=== PATIENT | female | born 1955 | race Caucasian/White ===

== ENCOUNTER 2016-11-06 14:25 | Emergency (ER) | payer OTHER ==
[2016-11-06 14:45] VITALS: BP 164/90; PULSE 81; RESP 20; TEMP 97.3; O2SAT 97
--- NOTE | 2016-11-06 16:16 | DX ---
Chest, PA and Lateral History: Cough, laryngitis Comparison: None Findings: There is four-chamber cardiomegaly. The pulmonary vascularity is equalized, consistent with chronic pulmonary venous hypertension. There are no pleural effusions or curly B lines. There is no focal infiltrate or consolidation. Median sternotomy wires are faintly seen. There is tortuosity of t he descending thoracic aorta. There is degenerative change in the mid-lower thoracic spine. Upper abd ominal bowel gas pattern is normal. Impression: 1. Cardiomegaly with compensated CHF. 2. No pneumonia.
--- NOTE | 2016-11-06 16:25 | DX ---
AP and lateral soft tissue neck History: Laryngitis, throat feels more swollen at night. Comparison: None available. Findings: Epiglottic assessment is slightly limited by positioning, with no definite epiglottic thick ening identified. The airway appears widely patent. There is no prevertebral soft tissue swelling. Tr ariana retrolisthesis of C4 on C5 is noted. There is moderate vertebral and uncovertebral spondylosis at C4-C5 and C5-C6. Partial anterior and posterior fusion of C6 and C7 is noted. Sternotomy wires are i ntact. Mild atherosclerosis is present in the left carotid bifurcation. Impression: 1. Suboptimal assessment of the epiglottis with no gross epiglottic thickening. 2. Additional findings as above.
--- NOTE | 2016-11-06 16:50 | UCPHY ---
H & P Time Seen by Provider: 11/06/16 15:08 Patient Type: Established HPI/ROS: 59-year-old female presents complaining of cough sore throat fevers chills body aches nasal congestion Review of systems As per HPI General positive fevers positive chills no weakness HEENT no eye pain no eye discharge. No eye redness, positive sore throat Respiratory positive cough, no shortness of breath Cardiac no chest pain, no peripheral edema GI no abdominal pain, no diarrhea, no constipation, no nausea, no vomiting no flank pain, no hematuria, no dysuria Musculoskeletal no myalgias, no joint pain Heme no easy bruising, no easy bleeding Endo no polyuria, no polydipsia Skin no rashes, no pruritus Neuro no syncope, no dizziness, no headaches Psych is no suicidal ideation, no homicidal ideation Past Medical/Surgical History: Noncontributory Social History: Denies alcohol or drug use Smoking Status: Never smoked Physical Exam: 61-year-old female Alert and oriented nontoxic appearance, no acute distress afebrile Atraumatic normocephalic Extraocular muscles intact, anicteric Nares mild yellowish discharge Oropharynx mild erythema no tonsillar swelling no exudate no uvular deviation, tolerating own secretions Neck supple no lymphadenopathy Lungs clear to auscultation bilaterally Heart regular rate and rhythm Abdomen normoactive bowel sounds soft nontender Extremities no cyanosis clubbing or edema Skin no rash Constitutional: Initial Vital Signs Temperature (C) 36.3 C 11/06/16 14:42 Heart Rate 81 11/06/16 14:42 Respiratory Rate 20 11/06/16 14:42 Blood Pressure 164/90 H 11/06/16 14:42 O2 Sat (%) 97 11/06/16 14:42 O2 Delivery Mode Room Air Allergies/Adverse Reactions: No Known Allergies Allergy (Unverified 12/04/15 10:39) Medical Decision Making - Diagnostics Imaging: Chest x-ray negative for infiltrate Positive cardiomegaly ED Course/Re-evaluation: Patient seen and evaluated for cough cold laryngitis fevers chills Chest x-ray negative for pneumonia Influenza negative Strep negative Exam consistent with cold, laryngitis pharyngitis bronchitis Impression Laryngitis, pharyngitis Plan Supportive care Follow-up PCP Departure - Departure Disposition: Home, Routine, Self-Care Clinical Impression: Laryngitis, Pharyngitis, Upper respiratory tract infection Condition: Good Instructions: Laryngitis (ED), Pharyngitis (ED), Upper Respiratory Infection ( ED) Referrals: IN STATE,. [Primary Care Provider] - As per Instructions - PQRS PQRS Measurement: na
== END 2016-11-06 16:52 | disposition home or self-care (01) ==
LOC: CED 14:25
DX: J04.0 Acute laryngitis (principal); J02.9 Acute pharyngitis, unspecified
CPT/HCPCS: 70360-PO; 71020-PO; 87400-PO; 87880-PO; G0463-PO

== ENCOUNTER 2016-11-29 07:34 | Day surgery (SDC) | payer OTHER ==
[2016-11-29] MEDS ORDERED: diphenhydrAMINE 25 MG CAP PO ONE ×2 (07:37→08:15)
[2016-11-29] MEDS ORDERED: NS 1,000 ML IV ONE (07:37)
[2016-11-29] MEDS ORDERED: ASPIRIN EC 325 MG TAB PO ONE ×2 (07:37→08:15)
[2016-11-29] MEDS ORDERED: FAMOTIDINE 20 MG TAB PO ONE (07:37)
[2016-11-29] MEDS ORDERED: DIAZEPAM 5 MG TAB PO ONE ×2 (07:37→16:00)
--- NOTE | 2016-11-29 08:11 | CPEKG ---
Heart Rate: 66 RR Interval: 909 P-R Interval: 228 QRSD Interval: 150 QT Interval: 464 QTC Interval: 487 P [place]: 45 QRS [place]: 1 T Wave [place]: 28 EKG Severity - ABNORMAL ECG - EKG Impression: SINUS RHYTHM EKG Impression: FIRST DEGREE AV BLOCK EKG Impression: RIGHT BUNDLE BRANCH BLOCK EKG Impression: LEFT VENTRICULAR HYPERTROPHY Electronically Signed By: Eric Murcia 29-Nov-2016 14:44:23
[2016-11-29] MEDS ORDERED: FAMOTIDINE 20 MG TAB ONE (08:15)
[2016-11-29] MEDS ORDERED: DIAZEPAM 5 MG TAB ONE ×2 (08:16→15:56)
[2016-11-29 08:36] LABS: % IMMATURE GRANULYOCYTES 0.2 % (0.0-1.1); ABSOLUTE IMMATURE GRANULOCYTES 0.01 10^3/uL (0.00-0.10); ADD DIFF? NO; ADD MORPH? NO; ADD SCAN? NO; ATYPICAL LYMPHOCYTE FLAG 10 (0-99); FRAGMENT RBC FLAG 0 (0-99); HEMOGLOBIN 14.5 g/dL (12.6-16.3); LEFT SHIFT FLG 0 (0-99); LIPEMIA HEMOLYSIS FLAG 80 (0-99); MEAN CELL HEMOGLOBIN 30.7 pg (27.9-34.1); MEAN CELL HEMOGLOBIN CONCENTR. 33.7 g/dL (32.4-36.7); MEAN CELL VOLUME 90.9 fL (81.5-99.8); MEAN PLATELET VOLUME 9.5 fL (8.7-11.7); PLATELET CLUMPS FLAG 0 (0-99); PLATELET COUNT 190 10^3/uL (150-400); RED BLOOD CELL COUNT 4.73 10^6/uL (4.18-5.33); RED CELL DISTRIBUTION WIDTH 12.6 % (11.5-15.2)
[2016-11-29] MEDS ORDERED: PROPOFOL 200 MG/20 ML VIAL ONE ×2 (08:40→09:44)
[2016-11-29] MEDS ORDERED: MIDAZOLAM 2 MG/2 ML VIAL ONE ×2 (08:41→09:29)
[2016-11-29 08:44] LABS: INR 1.11 (0.83-1.16); PROTIME(PATIENT) 14.2 SEC (12.0-15.0)
[2016-11-29] MEDS ORDERED: ATROPINE SULFATE 1 MG/10 ML SYR ONE (08:51)
[2016-11-29 09:06] LABS: ANION GAP 11 mEq/L (8-16); CALCIUM 9.4 mg/dL (8.5-10.4); CARBON DIOXIDE 25 mEq/l (22-31); CHLORIDE 103 mEq/L (97-110); CHOLESTEROL 186 mg/dL (140-220); CHOLESTEROL/HDL RATIO 5.17 RATIO (1.00-4.44); CREATININE 0.7 mg/dL (0.6-1.0); GLOMERULAR FILTRATION RATE > 60; GLUCOSE 97 mg/dL (70-100); HIGH DENSITY LIPOPROTEIN 36 mg/dL (40-85); LDL/HDL RATIO 3.69 RATIO (1.00-3.22); LOW DENSITY LIPOPROTEIN 133 mg/dL (80-100); MAGNESIUM 2.1 mg/dL (1.6-2.3); NON-HIGH DENSITY LIPOPROTEIN 150 mg/dL (90-129); POTASSIUM 3.9 mEq/L (3.5-5.2); SODIUM 139 mEq/L (134-144); TRIGLYCERIDE 85 mg/dL (35-135); VERY LOW DENSITY LIPOPROTEINS 17 mg/dL (8-25)
[2016-11-29] MEDS ORDERED: LIDOCAINE 1% 30 ML SDV ONE (09:28)
[2016-11-29] MEDS ORDERED: IOPAMIDOL (ISOVUE-370) 150 ML BTL IV ONE ×2 (09:29→11:21)
[2016-11-29] MEDS ORDERED: fentaNYL 100 MCG/2 ML INJ ONE (09:29)
[2016-11-29] MEDS ORDERED: SUCCINYLCHOLINE CHLORIDE*ANESTHESIA ONLY*200 MG/10 ML SYR IVP ONE (10:03)
[2016-11-29] MEDS ORDERED: EPINEPHrine RACEMIC INH 0.5 ML DEYVIAL IH ONE (10:09)
[2016-11-29] MEDS ORDERED: ALBUTEROL 3 ML DEYVIAL ONE (10:10)
[2016-11-29] MEDS ORDERED: PROPOFOL/EMULSION 500 MG/50 ML BOTTLE IV ONE (10:27)
--- NOTE | 2016-11-29 13:09 | CPEKG ---
Heart Rate: 75 RR Interval: 800 P-R Interval: 224 QRSD Interval: 142 QT Interval: 412 QTC Interval: 461 P [place]: 46 QRS [place]: 6 T Wave [place]: 7 EKG Severity - ABNORMAL ECG - EKG Impression: SINUS RHYTHM EKG Impression: FIRST DEGREE AV BLOCK EKG Impression: RIGHT BUNDLE BRANCH BLOCK EKG Impression: PROBABLE LVH WITH SECONDARY REPOL ABNRM Electronically Signed By: Eric Murcia 29-Nov-2016 14:44:03
--- NOTE | 2016-11-29 13:48 | CPIP ---
DATE OF PROCEDURE: 11/29/2016 PROCEDURES: 1. Left heart catheterization. 2. Right heart catheterization. 3. Left ventriculography. 4. Coronary angiography. INDICATIONS: 1. Rzgesrnv-jr-uyvqdm mitral regurgitation. 2. History of congenital heart disease. 3. Possible pre cardiac surgery planning. 4. Pulmonary hypertension. COMPLICATIONS: None. DESCRIPTION OF PROCEDURE: Informed consent was obtained, and timeout performed. The patient was br ought to the cardiac catheterization lab and prepped and draped in a sterile fashion. Adequate cons cious sedation was achieved by Dr. Guadarrama of the anesthesia service. 1% lidocaine was used for loca l anesthesia to the right groin. Using modified Seldinger technique, a 6-Turkish introducer sheath w as placed in the right common femoral artery, and a 7-Turkish introducer sheath in the right common f emoral vein. Florence-Enedelia catheter was used for right heart catheterization. JL4, 3.5 catheter was us ed for left coronary angiography. An AL1 catheter was used for right coronary angiography. Pigtail catheter was used for left ventriculography. FINDINGS: 1. The left main bifurcates into the LAD and left circumflex systems. There is 40% ostial left rachelle n disease as well as a lesser degree of disease throughout the left main. The LAD reaches the apex. 2. The LAD reached the apex. There are 2 principal diagonals. There was a 70% proximal LAD lesion . There is diffuse 40% disease throughout the remainder of the LAD. 3. The circumflex has 3 fairly large obtuse marginals. There is 50% ostial stenosis of the 1st obt use marginal, otherwise no significant disease in the left circumflex. 4. The right coronary artery was not perfectly visualized due to difficulty with catheter engagemen t (tried JR4, Jose Right, AL1 and AL2). There does appear to be at least 50% ostial RCA disease , and then 50% mid RCA stenosis. Anatomy is right dominant. LEFT VENTRICULOGRAPHY: Left ventricular ejection fraction is 55%. There is at least moderate jon l regurgitation. HEMODYNAMICS: Right heart catheterization RA pressure is 7, RV pressure 44/5, PA pressure 44/16 wit h a mean of 28, pulmonary capillary wedge pressure mean of 11 with significant V-wave to 16. LV pressure 105/8, aortic pressure 108/57. There is no aortic stenosis. LV end-diastolic pressure is 17. We did a full shunt run. Calculated Bradley cardiac output on room air is 7.2 L/minutes. Index is 3.8 5 L/minute. SVC saturation is 77%. RA saturation 80%. RV saturation 79%. PA saturation 80% and I VC saturation 82%, FA saturation 96.5%. There does not appear to be any significant intracardiac sh unting. CONCLUSIONS: 1. 40% left main disease as well as significant LAD and RCA disease. 2. Low normal ejection fraction. 3. Pbocmpqf-hx-dvyvtf mitral regurgitation. 4. Mild pulmonary hypertension. 5. History of congenital heart disease, possibly ASD repair. No other congenital heart disease was identified based on her SHENG or heart catheterization. 6. Patient will have a manual sheath pull as she has some peripheral vascular disease. 7. Add statin and aspirin. 8. Patient currently in stable condition, discharged home once groin protocol is complete. Follow up with Dr. Rizo and Dr. Moss for consideration of surgical intervention. /[id number]/MODL
--- NOTE | 2016-11-29 16:40 | ECHO ---
[id number] + + [address] : : [facility] [address] : : [phone] + + Transesophageal Echocardiographic Report + -------+ :Name: RYANNE HICKS CStudy Date: 11/29/2016 10:30 AM : : Hospital Admission Number: [id number] Locati on: CVC: :: 1955 Gender: Female : :Age: 61 yrs Race: WH : :Reason For Study: Eval LV Fx : :History: MR, Pre Cath : + -------+ Left Ventricle The left ventricular ejection fraction is normal. Right Ventricle The right ventricular systolic function is severely reduced. Atria The interatrial septum is intact with no evidence for an atrial septal defect. Injection of contrast documented no interatrial shunt. No left atrial mass or thrombus visualized. No thrombus is detected in the left atrial appendage. The left atrium is severely dilated. The right atrium is moderately dilated. Mitral Valve Severe prolapse of the posterior leaflet of the mitral valve. There is no mitral valve stenosis. There is severe mitral regurgitation. The mitral regurgitant jet is anteriorly directed, which is consistent with posterior leaflet pathology. Tricuspid Valve There is moderate tricuspid regurgitation. Aortic Valve The aortic valve is trileaflet. There is no aortic stenosis. There is no aortic insufficiency. Pulmonic Valve The pulmonic valve is normal in structure and function. There is no pulmonic valvular regurgitation. Vessels The aortic root is normal size. Pericardium There is no pericardial effusion. Conclusion The left ventricular ejection fraction is normal. The interatrial septum is intact with no evidence for an atrial septal defect. Injection of contrast documented no interatrial shunt. No left atrial mass or thrombus visualized. No thrombus is detected in the left atrial appendage. The left atrium is severely dilated. Severe prolapse of the posterior leaflet of the mitral valve There is severe mitral regurgitation. The mitral regurgitant jet is anteriorly directed, which is consistent with posterior leaflet pathology. The right ventricular systolic function is severely reduced. There is moderate tricuspid regurgitation. The aortic valve is trileaflet. There is no pericardial effusion. Final Reading Physician: Dr Ignacia Medina electronically signed on 11/29/2016 04:38 PM Ordering Physician: Ignacia Medina Performed By: Dr Ignacia Medina
== END 2016-11-29 18:44 | disposition home or self-care (01) ==
LOC: FCATH 07:34
PROVIDERS: ATTEND Internal Medicine Cardiovascular Disease
PROC: B2111ZZ Fluoroscopy of Multiple Coronary Arteries using Low Osmolar Contrast (ICD-10-PCS; principal; 2016-11-29)
PROC: B2151ZZ Fluoroscopy of Left Heart using Low Osmolar Contrast (ICD-10-PCS; principal; 2016-11-29)
PROC: 4A023N8 Measurement of Cardiac Sampling and Pressure, Bilateral, Percutaneous Approach (ICD-10-PCS; principal; 2016-11-29)
DX: I34.0 Nonrheumatic mitral (valve) insufficiency (principal); I25.10 Atherosclerotic heart disease of native coronary artery without angina pectoris; I27.2 Other secondary pulmonary hypertension; Z96.641 Presence of right artificial hip joint
CPT/HCPCS: J0330; J0461; J1644; J2250; J2704; J3010; Q9967

== ENCOUNTER → 2016-12-04 | Outpatient (CLI) | payer OTHER | LOC: FIMAGING 15:47 | PROVIDERS: ATTEND Internal Medicine Cardiovascular Disease | DX: R09.89 Other specified symptoms and signs involving the circulatory and respiratory systems (principal) ==

== ENCOUNTER → 2016-12-11 | Outpatient (CLI) | payer OTHER ==
[~2016-12-11] MED LIST: IOPAMIDOL (ISOVUE 370) 100 ML BTL IV ONE; METOPROLOL TARTRATE 5 MG/5 ML INJ ONE
== END ==
LOC: FIMAGING 10:47
PROVIDERS: ATTEND Internal Medicine Cardiovascular Disease
DX: I25.10 Atherosclerotic heart disease of native coronary artery without angina pectoris (principal); I27.2 Other secondary pulmonary hypertension; I51.7 Cardiomegaly
CPT/HCPCS: Q9967

== ENCOUNTER 2017-01-01 05:53 | Inpatient (IN) | payer OTHER ==
[2017-01-01] MEDS ORDERED: VERAPAMIL 5 MG, NITROGLYCERIN 2.5 MG, HEPARIN 500 UNIT, SODIUM BICARBONATE 0.2 MEQ in L... MISC ONE (06:00)
[2017-01-01] MEDS ORDERED: MUPIROCIN 2% 22 GM OINT NS ONE (06:00)
[2017-01-01] MEDS ORDERED: NOREPINEPHRINE BITARTRATE 16 MG in NS 250 ML IV ONE (06:00)
[2017-01-01] MEDS ORDERED: PHENYLEPHRINE HCL 50 MG in NS 250 ML IV ONE (06:00)
[2017-01-01] MEDS ORDERED: LIDOCAINE 1% 5 ML SDV ID PRN ×2 (06:00→06:55)
[2017-01-01] MEDS ORDERED: AMINOCAPROIC ACID 5 GM/20 ML VIAL IV ONE (06:00)
[2017-01-01] MEDS ORDERED: ceFAZolin 2 GM/DEXTROSE 100 ML IV ONE (06:00)
[2017-01-01] MEDS ORDERED: CHLORHEXIDINE GLUC HIBICLENS 118 ML BTL TP ONE (06:00)
[2017-01-01] MEDS ORDERED: MANNITOL 25% 12.5 GM/50 ML VIAL IV ONE (06:00)
[2017-01-01] MEDS ORDERED: SODIUM BICARBONATE 20 MEQ, LIDOCAINE 1% 10 ML in NORMOSOL-R 1,000 ML MISC ONE (06:00)
[2017-01-01] MEDS ORDERED: NS 1,000 ML IV ONE (06:00)
[2017-01-01] MEDS ORDERED: INSULIN REGULAR HUMAN 100 UNIT in NS 100 ML IV ONE (06:00)
[2017-01-01] MEDS ORDERED: niCARdipine/NACL 200 ML IV SCH (06:00)
[2017-01-01] MEDS ORDERED: CITRATE DEXTROSE SOLN 500 ML BAG MISC ONE (06:00)
[2017-01-01] MEDS ORDERED: LIDOCAINE 1% 2 ML INJ ONE (06:38)
[2017-01-01] MEDS ORDERED: PROTAMINE SULFATE 50 MG/5 ML VIAL IVP ONE (06:55)
[2017-01-01] MEDS ORDERED: LR 1,000 ML IV ONE (06:55)
[2017-01-01] MEDS ORDERED: CALCIUM CHLORIDE 1 GM/10 ML INJ ONE ×2 (06:55→07:00)
[2017-01-01] MEDS ORDERED: AMINOCAPROIC ACID 5 GM/20 ML VIAL ONE ×2 (06:56→07:00)
[2017-01-01] MEDS ORDERED: NA BICARBONATE 50 MEQ/50 ML VIAL ONE (06:56)
[2017-01-01] MEDS ORDERED: MILRINONE/DEXTROSE/100 ML BAG IV ONE (06:56)
[2017-01-01] MEDS ORDERED: POTASSIUM Cl (KCl) 20 MEQ/50 ML BAG IV ONE (06:56)
[2017-01-01] MEDS ORDERED: niCARdipine/NACL/200 ML BAG IV ONE (06:57)
[2017-01-01] MEDS ORDERED: AMIODARONE HCL 150 MG/3 ML VIAL ONE ×2 (06:57→07:01)
[2017-01-01] MEDS ORDERED: DOPamine/DEXTROSE/250 ML BAG IV ONE (06:57)
[2017-01-01] MEDS ORDERED: ADENOSINE 6 MG/2 ML VIAL ONE (06:57)
[2017-01-01] MEDS ORDERED: ceFAZolin 1 GM VIAL ONE (06:58)
[2017-01-01] MEDS ORDERED: HEPARIN 10,000 UNIT/10 ML MDV ONE ×2 (06:58→07:02)
[2017-01-01] MEDS ORDERED: VERAPAMIL 5 MG/2 ML VIAL ONE (06:59)
[2017-01-01] MEDS ORDERED: SKIN ADHESIVE (DERMABOND) 1 EACH TP ONE ×2 (06:59→13:55)
[2017-01-01] MEDS ORDERED: PAPAVERINE HCL 60 MG/2 ML SDV ONE (06:59)
[2017-01-01] MEDS ORDERED: ALBUMIN 5% 250 ML BOTTLE IV ONE (07:00)
[2017-01-01] MEDS ORDERED: LIDOCAINE 2% 100 MG/5 ML SYR ONE (07:01)
[2017-01-01] MEDS ORDERED: MAGNESIUM SULFATE 1 GM/2 ML VIAL ONE (07:01)
[2017-01-01] MEDS ORDERED: methylPREDNISolone SOD SUCC 1 GM/8 ML VIAL ONE (07:01)
[2017-01-01] MEDS ORDERED: CITRATE DEXTROSE SOLN 500 ML BAG ONE (07:01)
[2017-01-01] MEDS ORDERED: fentaNYL 250 MCG/5 ML INJ ONE ×2 (07:07)
[2017-01-01] MEDS ORDERED: MIDAZOLAM 2 MG/2 ML VIAL ONE ×2 (07:07→07:13)
[2017-01-01] MEDS ORDERED: PROPOFOL/EMULSION 500 MG/50 ML BOTTLE IV ONE (07:08)
[2017-01-01] MEDS ORDERED: MINERAL OIL 10 ML VIAL TP ONE (09:12)
[2017-01-01] MEDS ORDERED: DOBUTamine/DEXTROSE 250 ML IV SCH (11:00)
[2017-01-01] MEDS ORDERED: DEXMEDETOMIDINE HCL 400 MCG in NS 100 ML IV SCH (11:00)
[2017-01-01] MEDS ORDERED: PROPOFOL 200 MG/20 ML VIAL ONE (11:06)
[2017-01-01] MEDS ORDERED: THROMBIN(HUM PLAS)/FIBRINOG/CA 5 ML VIAL TP ONE (13:55)
[2017-01-01] MEDS ORDERED: CEPACOL LOZENGE PO PRN (14:07)
[2017-01-01] MEDS ORDERED: MAGNESIUM HYDROXIDE 30 ML UDCUP PO PRN (14:07)
[2017-01-01] MEDS ORDERED: MEPERIDINE 25 MG/ML SYR IVP PRN (14:07)
[2017-01-01] MEDS ORDERED: LACTULOSE 20 GM/30 ML UDCUP PO PRN (14:07)
[2017-01-01] MEDS ORDERED: fentaNYL 100 MCG/2 ML INJ IVP PRN (14:07)
[2017-01-01] MEDS ORDERED: ACETAMINOPHEN 650 MG SUPP PR PRN (14:07)
[2017-01-01] MEDS ORDERED: MAGNESIUM SULF 2 GM/WATER 50 ML IV ONE (14:07)
[2017-01-01] MEDS ORDERED: BISACODYL 10 MG SUPP PR PRN (14:07)
[2017-01-01] MEDS ORDERED: SODIUM CL NASAL 45 ML BTL EACHNARE PRN (14:07)
[2017-01-01] MEDS ORDERED: PANTOPRAZOLE SODIUM 40 MG in NS 100 ML IV ONE (14:07)
[2017-01-01] MEDS ORDERED: POTASSIUM Cl (KCl) 50 ML IV PRN (14:07)
[2017-01-01] MEDS ORDERED: ONDANSETRON DISINTEGRATING 4 MG TAB PO PRN (14:07)
[2017-01-01] MEDS ORDERED: D50W 25 GM/50 ML SYR IVP PRN (14:07)
[2017-01-01] MEDS ORDERED: NS 1,000 ML IV SCH (14:15)
[2017-01-01] MEDS ORDERED: INSULIN REGULAR HUMAN 100 UNIT in NS 100 ML IV SCH (14:30)
[2017-01-01] MEDS ORDERED: HYDROmorphONE/DILAUDID 2 MG/ML INJ ONE (14:44)
[2017-01-01] MEDS ORDERED: SUGAMMADEX SODIUM 200 MG/2 ML VIAL IVP ONE (15:00)
--- NOTE | 2017-01-01 15:02 | POSTOPPROG ---
Post Op Note Date of Operation: 01/01/17 Surgeon: Silvino Moss Deputy Juvenile Officer: Basilio Anesthesiologist: Jaime Anesthesia: GET(General Endotracheal) Pre-op Diagnosis: CHF class3, MR,TR, ASHD, dilated CM Procedure: MVA #34 ring, P2 resection, TVA # 36, Argueta-Lad, SVG-OM1,RCA, lig JOSE Inf/Abcess present in the surg proc area at time of surgery?: No EBL: 100-500 Drains: Other (3 blakes)
[2017-01-01] MEDS ORDERED: IPRATROPIUM/ALBUTEROL 3 ML DEYVIAL IH PRN (15:12)
[2017-01-01] MEDS ORDERED: SODIUM BICARBONATE 50 MEQ/50 ML SYR ONE (15:58)
--- NOTE | 2017-01-01 16:08 | GOP ---
[f rep st] OPERATIVE REPORT DATE OF OPERATION: 01/01/2017 SURGEON: Silvino Moss DO LUMP ROOM SUPERVISOR: Steff Richmond, PAC. ANESTHESIOLOGIST: Nicolas Sandoval MD. PREOPERATIVE DIAGNOSIS: 1. Class III congestive heart failure with dilated cardiomyopathy with severe mitral insufficiency and moderate tricuspid insufficiency with marked tricuspid anulus dilatation. 2. Arteriosclerotic heart disease. POSTOPERATIVE DIAGNOSIS: PROCEDURE PERFORMED: 1. Reoperation, complex mitral valve repair with P2 triangular resection with closure of cleft and #34 annuloplasty ring. 2. Tricuspid valve annuloplasty with a #36 annuloplasty ring. 3. Coronary artery bypass grafting x3 with left internal mammary artery to the LAD, saphenous vein graft to the first OM, saphenous vein graft to the RCA. 4. AtriClip ligation of left atrial appendage. 5. Aortoplasty with reduction of lumen size. FINDINGS: Patient presented with congestive heart failure. She was noted to have severe mitral ins ufficiency with marked left atrial and left ventricular enlargement as well as right ventricular and right atrial enlargement with moderate pulmonary hypertension and moderate tricuspid insufficiency. At catheterization, she was found to have 3-vessel disease. Holter monitor revealed no atrial fib rillation with just short episodes of ventricular ectopy. Historically, the patient has undergone h eart surgery at age 3 in 1958 on the [facility]; however, the procedure performed was unknown to her or her family, and those records are not obtainable. Cardiac CTA failed to elucidate any other fin dings that would suggest previous surgery; however, she did have a sternotomy with wires. DESCRIPTION OF PROCEDURE: She was consented for surgery, brought to the operating room, intubated, and monitoring lines were placed. She was prepped and draped in sterile classical manner. Repeat s ternotomy was performed. It should be noted we also exposed the right common femoral artery because the heart appeared to be densely adherent to the back of the sternum. In fact, we were able to saf alex marsupialize the heart away from the anterior surface of the heart and did not use the right com mon femoral artery. We then spent a great deal of time marsupializing a very large heart with all 4 chamber enlargement. The heart was least twice normal size. The aorta measured 4.3 cm in the wide st segment, up to 4.5 at the sinotubular junction. Because of her younger age, it was scheduled to be resected. We cannulated the transverse arch where the aorta was soft as well as bicaval cannulas . We also placed antegrade and retrograde cardioplegic catheters. Cardiopulmonary bypass was begun . Cardioplegic arrest was obtained with intermittent antegrade cardioplegia, retrograde cardioplegi a, topical hypothermia and systemic cooling throughout the procedure. We then dissected out the lef t side of the heart. We identified the left atrial appendage, which was mobilized and an AtriClip w as placed across the base of it. Then spent a great deal of time identifying the 1st OM, which was difficult to identify but was a 1.6-1.7 mm vessel which was grafted from the vein harvested endoscop ically from the left thigh by ANDREA Nielson. We then completed that anastomosis and then performed t he mammary to the mid LAD, which was a 2 mm vessel. The mammary was smaller but had brisk flow. We then completed vein grafting to the RCA prior to the bifurcation of the PDA where the vessel was so ft but did have some plaque proximally. We then proceeded with exposing the right atrial tricuspid valve through a right atriotomy. We secured cable tapes and opened down through the inner atrial se ptum down onto the dome of the left atrium to expose the mitral valve because of the very deep posit ion of her pulmonary veins and the reoperative nature. Excellent exposure of the valve was obtained . The patient had a thickened myxomatous valve with obvious P2 prolapse. Circumferential annulopla sty suture rings were placed for better exposure. We then did a triangular resection of P2 with clif damari repair utilizing [place]-Jeremi suture. We then placed a 34 annuloplasty ring after sizing it to the anterior leaflet. of the ventricle revealed trace central regurgitation at the juncture of P2 and P3 at a cleft there, which was closed with two 5-0 [place]-Jeremi interrupted sutures. No regu rgitation was then identified. The interatrial septum was closed as was the dome of the left atrium . We then identified the tricuspid valve which was markedly dilated, at least 50-60 mm. Leaflets w ere thickened but appeared to coapt except for annular dilatation. Placed circumferential suture ri ngs and sized the patient for the largest annuloplasty ring we have, which was a 36, with good coapt ation of the leaflets. That suture was then closed. We then performed an aortoplasty, initially wi th plans to resect the aorta. Because of the prolonged nature of the surgery because of dense adhes ions and complexity of getting into the chest safely as well as identifying vessels and the duration of cross-clamp time, I elected to do an aortoplasty as the wall was thick. I did a longitudinal ao rtotomy along the lateral wall on the right at the greater curvature of the vessel. The aorta was a ctually a good quality vessel which was quite thick. I then used felt reinforced horizontal mattres s followed by continuous [id number] sutures reducing the size of the lumen approximately 1.8 to 2 cm. I then performed the proximal anastomosis to the ascending aorta. I removed the cross-clamp w ith suction on the ascending aortic vent. Spontaneous cardiac activity was noted to resume. The pa tient was then easily weaned from bypass with low-dose dobutamine in Trendelenburg with intermittent aspiration of the LV apex. Evaluation of the mitral valve revealed excellent coaptation with absol utely no regurgitation and no TRA despite increasing dobutamine dose to elicit it. Ventricular func tion appeared to be about 40% to 45%. RV function pre and post pump appeared to be somewhat diminis hed with at least moderate to moderate severe dysfunction. The patient remained stable while protam ine was administered. We spent a great deal of time to make sure that no surgical bleeding was iden tified. Two mediastinal and 1 left pleural drain were placed. The thymic fat and pericardium were closed over the heart. The chest was closed in a standard fashion. The patient was returned to the ICU in stable condition. /[id number]/MODL
[2017-01-01] MEDS: ceFAZolin 2 GM/DEXTROSE 100 ML IV SCH ×2 (17:29→23:50)
[2017-01-01] MEDS ORDERED: NA BICARBONATE 50 MEQ/50 ML VIAL IV ONE (17:30)
[2017-01-01] MEDS ORDERED: KETOROLAC 15 MG/1 ML SDV IVP SCH (18:00)
[2017-01-01] MEDS ORDERED: SODIUM BICARBONATE 50 MEQ/50 ML SYR IV ONE (19:00)
[2017-01-01 19:47] LABS: CALCULATED OXYGEN SATURATION 99 % (92-95)
[2017-01-01 19:47] LABS: CALCULATED OXYGEN SATURATION 96 % (92-95)
[2017-01-01 20:23] LABS: BASE EXCESS -4.1 mEq/L (-2.5-2.5); BICARBONATE 20 mEq/L (22-26); MEASURED OXYGEN SATURATION 98 % (92-95); TCO2 21 mEq/L (23-27)
[2017-01-01 20:24] LABS: PCO2 36 mmHg (34-38); PO2 130 mmHg (65-75)
[2017-01-01] MEDS: ALBUMIN 5% 250 ML IV PRN ×2 (20:33→20:52)
[2017-01-01] MEDS: ONDANSETRON 4 MG/2 ML VIAL IVP PRN (20:50)
[2017-01-01] MEDS: SENNOSIDES/DOCUSATE SODIUM TAB PO SCH (21:36)
[2017-01-01] MEDS: MUPIROCIN 2% 22 GM OINT NS SCH (21:59)
[2017-01-01] MEDS: METOCLOPRAMIDE 10 MG/2 ML VIAL IVP PRN (23:58)
[2017-01-02] MEDS: MUPIROCIN 2% 22 GM OINT NS SCH ×3 (01:42→20:32)
[2017-01-02 04:32] LABS: HEMATOCRIT 34.3 % (38.0-47.0); HEMOGLOBIN 11.4 g/dL (12.6-16.3); MEAN CELL HEMOGLOBIN 30.8 pg (27.9-34.1); MEAN CELL HEMOGLOBIN CONCENTR. 33.2 g/dL (32.4-36.7); MEAN CELL VOLUME 92.7 fL (81.5-99.8); RED BLOOD CELL COUNT 3.7 10^6/uL (4.18-5.33); RED CELL DISTRIBUTION WIDTH 13.3 % (11.5-15.2)
[2017-01-02 04:45] LABS: INR 1.39 (0.83-1.16)
[2017-01-02 04:51] LABS: ANION GAP 6 mEq/L (8-16); CALCIUM 8.3 mg/dL (8.5-10.4); CARBON DIOXIDE 24 mEq/l (22-31); CHLORIDE 115 mEq/L (97-110); CREATININE 0.6 mg/dL (0.6-1.0); GLOMERULAR FILTRATION RATE > 60; GLUCOSE 120 mg/dL (70-100); POTASSIUM 4.9 mEq/L (3.5-5.2); SODIUM 145 mEq/L (134-144)
[2017-01-02] MEDS ORDERED: HEPARIN 5,000 UNIT/0.5 ML SYR SC SCH (06:00)
[2017-01-02] MEDS ORDERED: FUROSEMIDE 20 MG/2 ML VIAL IVP ONE (07:24)
--- NOTE | 2017-01-02 07:30 | SOAPPROG ---
SOAP Progress Note Assessment/Plan: Assessment: POD#1 Redo median sternotomy, aortoplasty, complex MV rpr w #34 Physio annuloplasty ring, TVA #36 MC3 ring, CABG x 3 (PORFIRIO-LAD, SV-OM1, SV-RCA) , EVH left thigh, prophylactic AtriClip LLAA. Sx severe MR - Myxomatous valve amenable to complex repair. Antithrombotic prophylaxis with Coumadin, target INR 2-3, duration 3 mo. Secondary TR - Annular dilatation amenable to ring annuloplasty. Antithrombotic prophylaxis as per MV. CAD - Full revascularization with CABG3. Secondary prevention with baby ASA, BB as allowed by rhythm, and statin when eating well. Dilated ascending aorta - With preserved tissue integrity. Resection deferred and diameter reduced by aortoplasty. Prison BP control preferentially w BB. Dilated cardiomyopathy with chronic combined CHF - RVSD and LVDD. Empirically from CPB on dobutamine gtt, AV paced. Extubated in the OR. Stable hemodynamics overnoc. No sig volume overload. No dysrhythmia. Dobutamine wean in progress. Acute expected blood loss anemia w thrombocytopenia - Stable. No transfusions required. No evidence active coagulopathy. VTE prophylaxis with Coumadin. Plan: Switch to AAI pacing, rate 80 Lasix 20 mg IV x 1 Slow dobutamine wean. Target CVP 10-12, MAP > 70. Keep estela until off dobutamine. Keep guerra for accurate I/Os. Convert blakes to bulb suction. Mobility as tolerated. Start coumadin today. 2.5 mg. 01/02/17 07:26 Subjective: Feels a little groggy but better than expected. Thirsty. Satisfactory analgesia. Objective: Vital Signs Temp Pulse Resp BP Pulse Ox 38 C 80 18 112/49 L 96 01/02/17 06:00 01/02/17 06:00 01/02/17 06:00 01/02/17 06:00 01/02/17 06:00 Laboratory Results 01/02/17 04:10 01/02/17 04:10 01/01/17 01/02/17 01/03/17 05:59 05:59 05:59 Intake Total 1252 Output Total 2450 Balance -1198 PT 17.0 SEC (12.0-15.0) H 01/02/17 04:10 INR 1.39 (0.83-1.16) H 01/02/17 04:10 Dobutamine weaned from 10mcg to 6 mcg. MAPs maintained > 70. DDD paced at 80 for optimized hemodynamics. Underlying rhythm junctional 50s. Converted to AAI pacing without incident. Modest suppl O2 req. CXR-> bibasilar atelectasis with mild pulm vasc congestion. No PTX. No sig CTOP. No air leak. Adequate fluid balance. Labs ok. Physical Exam - Physical Exam General Appearance: alert, no apparent distress Respiratory: crackles (bases), other (Blakes x 3 y-d to pleurovac, serosang drainage, + tidal, no air leak) Cardiac/Chest: regular rate, rhythm (paced) Abdomen: non-tender, soft, other (hypoactive BS) Skin: warm/dry Extremities: swelling (1+ gen), other (LLE wrap intact) ICD10 Worksheet Patient Problems: Problems Problem Status Onset Acute blood loss anemia Acute S/P coronary artery bypass graft x 3 Acute ~01/01/17 S/P mitral valve repair Acute ~01/01/17 S/P tricuspid valve repair Acute ~01/01/17 s/p aortoplasty Acute ~01/01/17 Ascending aorta dilatation Chronic CAD in [place] artery Chronic Chronic combined systolic and diastolic CHF, NYHA class 2 Chronic Secondary pulmonary hypertension Chronic Secondary tricuspid valve regurgitation Chronic Severe mitral regurgitation Chronic Hip arthritis Chronic
[2017-01-02] MEDS: ceFAZolin 2 GM/DEXTROSE 100 ML IV SCH ×3 (07:42→23:39)
[2017-01-02] MEDS ORDERED: ASPIRIN 81 MG CHEWABLE TAB PO SCH (09:00)
[2017-01-02] MEDS ORDERED: ASPIRIN 81 MG CHEWABLE TAB TUBE PRN (09:00)
[2017-01-02] MEDS: ASPIRIN EC 81 MG TAB PO SCH (09:08)
[2017-01-02] MEDS: SENNOSIDES/DOCUSATE SODIUM TAB PO SCH ×2 (09:08→20:32)
[2017-01-02] MEDS: PANTOPRAZOLE SODIUM 40 MG TAB PO SCH (09:08)
[2017-01-02] MEDS: KETOROLAC 15 MG/1 ML SDV IVP PRN ×3 (10:10→23:39)
[2017-01-02] MEDS: HYDROCODONE/APAP 5/325 TAB PO PRN ×5 (10:11→23:49)
[2017-01-02 10:37] LABS: POTASSIUM 4.5 mEq/L (3.5-5.2)
--- NOTE | 2017-01-02 13:04 | SOAPPROG ---
SOAP Progress Note Assessment/Plan: Assessment: 61 y/o woman s/p redo sternotomy with MV and TV annuloplasties, CABG and JOSE ligation with preop LVEF 40%. POD #1 doing okay extubated. Still on moderate DBT dose gtt. CVP 13mmHg. REC: 1)would give another IV lasix 40mg later this afternoon if SBP > 95 2)rest of meds without changes. 3)will follow with you closely. 01/02/17 13:01 Subjective: tired. Some incisional pain. No rest dyspnea. No chest pressure or BEAULIEU. A little confused as waking up. Objective: Vital Signs Temp Pulse Resp BP Pulse Ox 37.8 C 80 20 132/67 H 96 01/02/17 12:00 01/02/17 12:00 01/02/17 12:00 01/02/17 12:00 01/02/17 12:00 Laboratory Results 01/02/17 04:10 01/02/17 10:15 01/01/17 01/02/17 01/03/17 05:59 05:59 05:59 Intake Total 1252 Output Total 2450 1035 Balance -1198 -1035 PT 17.0 SEC (12.0-15.0) H 01/02/17 04:10 INR 1.39 (0.83-1.16) H 01/02/17 04:10 Physical Exam - Physical Exam General Appearance: alert EENT: PERRL/EOMI Neck: non-tender Respiratory: decreased breath sounds (rare crackles at base. Not big breaths yet.) Cardiac/Chest: regular rate, rhythm, JVD, No gallop, No friction rub Peripheral Pulses: 2+: carotid (R), carotid (L), femoral (R), femoral (L), dorsalis-pedis (R), dorsalis-pedis (L) Abdomen: non-tender, No guarding Skin: warm/dry Extremities: pedal edema Neuro/Psych: alert ICD10 Worksheet Patient Problems: Problems Problem Status Onset Acute blood loss anemia Acute S/P coronary artery bypass graft x 3 Acute ~01/01/17 S/P mitral valve repair Acute ~01/01/17 S/P tricuspid valve repair Acute ~01/01/17 s/p aortoplasty Acute ~04/05/17 Ascending aorta dilatation Chronic CAD in [place] artery Chronic Chronic combined systolic and diastolic CHF, NYHA class 2 Chronic Secondary pulmonary hypertension Chronic Secondary tricuspid valve regurgitation Chronic Severe mitral regurgitation Chronic Hip arthritis Chronic
[2017-01-02] MEDS ORDERED: FUROSEMIDE 40 MG/4 ML VIAL IVP ONE ×2 (14:30→20:00)
[2017-01-02 15:35] LABS: POTASSIUM 4.8 mEq/L (3.5-5.2)
[2017-01-02] MEDS ORDERED: WARFARIN SODIUM 2.5 MG TAB PO ONE (16:00)
--- NOTE | 2017-01-02 18:54 | PDINTPN ---
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 Status post major open heart surgery, doing extremely well. On 0.5 L of oxygen, mobilizing, no significant problems or issues at this time. Pain under adequate control. Nothing to add. Will follow as needed. Objective: Vital Signs Temp Pulse Resp BP Pulse Ox 37.8 C 75 25 H 105/53 L 97 01/02/17 17:00 01/02/17 17:00 01/02/17 17:00 01/02/17 17:00 01/02/17 17:00 Laboratory Results 01/02/17 04:10 01/01/17 01/02/17 01/03/17 05:59 05:59 05:59 Intake Total 1252 298.5 Output Total 2450 1510 Balance -1198 -1211.5 PT 17.0 SEC (12.0-15.0) H 01/02/17 04:10 INR 1.39 (0.83-1.16) H 01/02/17 04:10 ICD10 Worksheet Patient Problems: Problems Problem Status Onset Secondary pulmonary hypertension Chronic Acute blood loss anemia Acute S/P tricuspid valve repair Acute ~01/01/17 S/P mitral valve repair Acute ~01/01/17 s/p aortoplasty Acute ~01/01/17 S/P coronary artery bypass graft x 3 Acute ~01/01/17 Ascending aorta dilatation Chronic Chronic combined systolic and diastolic CHF, NYHA class 2 Chronic CAD in [place] artery Chronic Secondary tricuspid valve regurgitation Chronic Severe mitral regurgitation Chronic Hip arthritis Chronic
[2017-01-02 18:56] LABS: POTASSIUM 5.4 mEq/L (3.5-5.2)
[2017-01-02] MEDS: ONDANSETRON 4 MG/2 ML VIAL IVP PRN (23:55)
[2017-01-03 00:42] LABS: POTASSIUM 5.3 mEq/L (3.5-5.2)
[2017-01-03] MEDS ORDERED: ALBUMIN 5% 250 ML BOTTLE IV ONE (01:59)
[2017-01-03] MEDS ORDERED: DOPamine/DEXTROSE/250 ML BAG IV ONE (01:59)
[2017-01-03] MEDS ORDERED: FUROSEMIDE 40 MG/4 ML VIAL IVP ONE ×2 (02:00→23:46)
[2017-01-03] MEDS ORDERED: ALBUMIN 5% 250 ML IV ONE ×2 (02:00→09:30)
[2017-01-03] MEDS: METOCLOPRAMIDE 10 MG/2 ML VIAL IVP PRN (02:27)
[2017-01-03 05:16] LABS: % IMMATURE GRANULYOCYTES 0.8 % (0.0-1.1); ABSOLUTE IMMATURE GRANULOCYTES 0.15 10^3/uL (0.00-0.10); ADD DIFF? NO; ADD MORPH? NO; ADD SCAN? NO; ATYPICAL LYMPHOCYTE FLAG 0 (0-99); FRAGMENT RBC FLAG 0 (0-99); HEMATOCRIT 31.9 % (38.0-47.0); HEMOGLOBIN 10.4 g/dL (12.6-16.3); LEFT SHIFT FLG 50 (0-99); LIPEMIA HEMOLYSIS FLAG 80 (0-99); MEAN CELL HEMOGLOBIN 31.3 pg (27.9-34.1); MEAN CELL HEMOGLOBIN CONCENTR. 32.6 g/dL (32.4-36.7); MEAN CELL VOLUME 96.1 fL (81.5-99.8); MEAN PLATELET VOLUME 10.4 fL (8.7-11.7); PLATELET CLUMPS FLAG 0 (0-99); PLATELET COUNT 86 10^3/uL (150-400); RED BLOOD CELL COUNT 3.32 10^6/uL (4.18-5.33); RED CELL DISTRIBUTION WIDTH 13.6 % (11.5-15.2)
[2017-01-03 05:24] LABS: ANION GAP 8 mEq/L (8-16); CALCIUM 8.3 mg/dL (8.5-10.4); CARBON DIOXIDE 27 mEq/l (22-31); CHLORIDE 102 mEq/L (97-110); CREATININE 1.1 mg/dL (0.6-1.0); GLOMERULAR FILTRATION RATE 50; GLUCOSE 164 mg/dL (70-100); POTASSIUM 4.7 mEq/L (3.5-5.2); SODIUM 137 mEq/L (134-144)
[2017-01-03 05:31] LABS: INR 1.72 (0.83-1.16); PROTIME(PATIENT) 20.2 SEC (12.0-15.0)
--- NOTE | 2017-01-03 06:57 | SOAPPROG ---
EM Progress Note Assessment/Plan: POD#2 Redo median sternotomy, aortoplasty, complex MV rpr w #34 Physio annuloplasty ring, TVA #36 MC3 ring, CABG x 3 (PORFIRIO-LAD, SV-OM1, SV-RCA), EVH left thigh, prophylactic AtriClip LLAA. Sx severe MR - Myxomatous valve amenable to complex repair. Antithrombotic prophylaxis with Coumadin, target INR 2-3, duration 3 mo. Secondary TR - Annular dilatation amenable to ring annuloplasty. Antithrombotic prophylaxis as per MV. CAD - Full revascularization with CABG3. Secondary prevention with baby ASA, BB as allowed by rhythm, and statin when eating well. Dilated ascending aorta - With preserved tissue integrity. Resection deferred and diameter reduced by aortoplasty. Nursing Home BP control preferentially w BB. Dilated cardiomyopathy with chronic combined CHF - RVSD and LVDD. Empirically from CPB on dobutamine gtt, AV paced. Extubated in the OR and dobutamine weaned off 01/01. Dopamine started early 01/02 for SBP < 90. Currently AV paced @ 80. -250 cc / 24 hours. 2D ECHO today to evaluate heart function/. Acute expected blood loss anemia w thrombocytopenia - Stable. No transfusions required. No evidence active coagulopathy. VTE prophylaxis with Coumadin. MCKENNA with hyperkalemia - Continue dopamine for renal perfusion - Monitor Cr / K 01/03/17 09:46 Subjective: Denies SOB/CP/adb pain. Objective: Vital Signs Temp Pulse Resp BP Pulse Ox 36.8 C 80 22 H 98/58 L 93 01/03/17 00:00 01/03/17 06:00 01/03/17 06:00 01/03/17 06:00 01/03/17 06:00 Laboratory Results 01/03/17 04:45 01/03/17 04:45 01/02/17 01/03/17 01/04/17 05:59 05:59 05:59 Intake Total 1252 2194.5 Output Total 2450 2445 Balance -1198 -250.5 PT 20.2 SEC (12.0-15.0) H 01/03/17 04:45 INR 1.72 (0.83-1.16) H 01/03/17 04:45 Physical Exam - Physical Exam General Appearance: alert, no apparent distress EENT: No scleral icterus (R), No scleral icterus (L) Neck: normal inspection Respiratory: No respiratory distress Cardiac/Chest: other (AV paced ) Abdomen: non-tender, soft, No distended Skin: normal color, warm/dry Extremities: pedal edema Neuro/Psych: no motor/sensory deficits, alert, normal mood/affect, oriented x 3 ICD10 Worksheet Patient Problems: Problems Problem Status Onset Acute blood loss anemia Acute S/P coronary artery bypass graft x 3 Acute ~01/01/17 S/P mitral valve repair Acute ~01/01/17 S/P tricuspid valve repair Acute ~01/01/17 s/p aortoplasty Acute ~01/01/17 Ascending aorta dilatation Chronic CAD in [place] artery Chronic Chronic combined systolic and diastolic CHF, NYHA class 2 Chronic Secondary pulmonary hypertension Chronic Secondary tricuspid valve regurgitation Chronic Severe mitral regurgitation Chronic Hip arthritis Chronic
[2017-01-03] MEDS: MUPIROCIN 2% 22 GM OINT NS SCH (09:00)
[2017-01-03] MEDS: ASPIRIN EC 81 MG TAB PO SCH (09:20)
[2017-01-03] MEDS: PANTOPRAZOLE SODIUM 40 MG TAB PO SCH (09:20)
[2017-01-03] MEDS: SENNOSIDES/DOCUSATE SODIUM TAB PO SCH ×2 (09:20→20:13)
[2017-01-03] MEDS: HYDROCODONE/APAP 5/325 TAB PO PRN ×3 (09:20→19:18)
--- NOTE | 2017-01-03 12:15 | SOAPPROG ---
SOAP Progress Note Assessment/Plan: Assessment: 61 y/o woman s/p redo sternotomy with MV and TV annuloplasties, CABG and JOSE ligation with preop LVEF 40%. POD #2 doing okay extubated. Still on moderate DBT dose gtt and low dose Dopamine gtt. CVP 13>7mmHg. AV paced. No sign of bleed or decompensated CHF. REC: 1)hopefully wean off IV dopamine in next 24hrs and off IV DBT gtt in next 2-3 days. 2)no beta pricila yet. 3)check underlying [place] heart rhythm. May need PPM. 4)IV lasix prn CVP > 10mmHg and SBP > 95. 5)ASA/coumadin and statin 01/03/17 12:12 Subjective: mentally more clear. Denies CP, BEAULIEU or rest dyspnea. Objective: Vital Signs Temp Pulse Resp BP Pulse Ox 36.8 C 80 15 102/63 96 01/03/17 00:00 01/03/17 07:00 01/03/17 07:00 01/03/17 07:00 01/03/17 07:00 Laboratory Results 01/03/17 04:45 01/03/17 04:45 01/02/17 01/03/17 01/04/17 05:59 05:59 05:59 Intake Total 1252 2194.5 Output Total 2450 2445 Balance -1198 -250.5 PT 20.2 SEC (12.0-15.0) H 01/03/17 04:45 INR 1.72 (0.83-1.16) H 01/03/17 04:45 Physical Exam - Physical Exam General Appearance: alert EENT: PERRL/EOMI Neck: non-tender Respiratory: lungs clear Cardiac/Chest: regular rate, rhythm, No gallop, No JVD Peripheral Pulses: 2+: carotid (R), carotid (L), femoral (R), femoral (L), dorsalis-pedis (R), dorsalis-pedis (L) Abdomen: non-tender, No distended Skin: warm/dry Extremities: No pedal edema Neuro/Psych: alert ICD10 Worksheet Patient Problems: Problems Problem Status Onset Acute blood loss anemia Acute S/P coronary artery bypass graft x 3 Acute ~01/01/17 S/P mitral valve repair Acute ~01/01/17 S/P tricuspid valve repair Acute ~01/01/17 s/p aortoplasty Acute ~01/01/17 Ascending aorta dilatation Chronic CAD in [place] artery Chronic Chronic combined systolic and diastolic CHF, NYHA class 2 Chronic Secondary pulmonary hypertension Chronic Secondary tricuspid valve regurgitation Chronic Severe mitral regurgitation Chronic Hip arthritis Chronic
[2017-01-03 13:31] LABS: ANION GAP 6 mEq/L (8-16); CALCIUM 8.6 mg/dL (8.5-10.4); CARBON DIOXIDE 27 mEq/l (22-31); CHLORIDE 101 mEq/L (97-110); GLOMERULAR FILTRATION RATE 56; GLUCOSE 143 mg/dL (70-100); SODIUM 134 mEq/L (134-144)
--- NOTE | 2017-01-03 14:22 | ECHO ---
[id number] + + [address] : : [place] [address] : : [phone] + + Adult Echocardiographic Report + -------+ :Name: RYANNE HICKS CStudy Date: 01/03/2017 11:04 AM BP: 103/65 mmH g : : Hospital Admission Number: [id number] on: 240: :: 1955 Gender: Female Height: 66 in : :Age: 61 yrs Race: WH Weight: 192 lb : :Reason For Study: r/o Pericardial effusion; eval LV/RV fx : : BSA: 2.0 meter s2 : :History: S/P MV repair #34 ring; TV ring #36, CABG : + -------+ MMode/2D Measurements \T\ Calculations IVSd: 0.89 cm LVIDd: 4.6 cm FS: 16.3 % Ao root diam: 3.2 cm LVPWd: 1.2 cm LVIDs: 3.8 cm EDV(Teich): 96.3 ml ESV(Teich): 63.3 ml EF(Teich): 34.3 % Normal Measurement Values: + + :LVIDd (3.5-5.7cm) IVSd (0.6-1.1cm) LVPWd (0.6-1.1cm) Aortic Root (2.0-3.7cm)Left Atrium (1.5-4.0cm): :LV Vol(d) (76-115ml) LV Vol(s) (29-48ml) Ejec Fraction (50-65%)PV Lyndon (0.6- 1.2m/s) TV [place] (0.4-1.0m/s) : :MV E [place] (0.8-1.0m/s)MV A [place] (0.3-1.0m/s)LVOT [place] (0.7-1.2m/s) Asc Ao Lyndon ( 0.9-1.8m/s) : + + Doppler Measurements \T\ Calculations MV V2 max: MV P1/2t max lyndon: Ao V2 max: LV V1 max: 131.2 cm/sec 130.3 cm/sec 107.7 cm/sec 64.2 cm/sec MV max PG: MV P1/2t: 67.0 msec Ao max PG: LV V1 max P.9 mmHg MVA(P1/2t): 3.3 cm2 4.6 mmHg 1.6 mmHg MV V2 mean: MV dec slope: 81.2 cm/sec MV mean P.8 cm/sec2 3.0 mmHg MV V2 VTI: 25.9 cm TV V2 max: PA V2 max: 76.0 cm/secTR max lyndon: 65.2 cm/sec PA max P.3 mmHg 337.7 cm/sec TV max PG: TR max P.7 mmHg 45.6 mmHg TV V2 mean: RAP systole: 47.0 cm/sec 5.0 mmHg TV mean PG: RVSP(TR): 0.96 mmHg 50.6 mmHg TV V2 VTI: 18.2 cm Left Ventricle The left ventricle is normal in size. There is normal left ventricular wall thickness. Left ventricular systolic function is moderately reduced. Ejection Fraction = 35%. Septal motion is consistent with post-operative state. There is moderate global hypokinesis of the left ventricle. Right Ventricle The right ventricle is mild to moderately dilated. The right ventricular systolic function is moderately reduced. Atria The left atrium is moderately dilated. The right atrium is mildly dilated. IVC not well visualized. Mitral Valve S/P mitral repair and #34 ring. Posterior leaflet is bright and thickened. There is no mitral valve stenosis. Mean transmital gradient is 3 mmHg. There is mild mitral regurgitation. Tricuspid Valve S/P #36 tricuspid ring. There is no tricuspid stenosis. There is mild to moderate tricuspid regurgitation. Right ventricular systolic pressure is 51mmHg. There is Doppler evidence for moderate pulmonary hypertension. Aortic Valve The aortic valve is trileaflet. There is mild aortic valve calcification. There is no aortic stenosis. Low flow/gradients across the AV consistent with low cardiac output. There is no aortic insufficiency. Pulmonic Valve The pulmonic valve is not well visualized. trace to mild pulmonic valvular regurgitation. Great Vessels The aortic root is normal size. Pericardium/Pleural There is no pericardial effusion. Conclusion A two-dimensional transthoracic echocardiogram with M-mode and Doppler was performed. Techically difficult echocardiogram. Left ventricular systolic function is moderately reduced. Ejection Fraction = 35%. There is moderate global hypokinesis of the left ventricle. Septal motion is consistent with post-operative state. The right ventricle is moderatly dilated The right ventricular systolic function is moderately reduced. The left atrium is moderately dilated. The right atrium is mildly dilated. S/P mitral repair and #34 ring. Mean transmital gradient is 3 mmHg There is mild mitral regurgitation. S/P #36 tricuspid ring. There is mild to moderate tricuspid regurgitation. Right ventricular systolic pressure is 51mmHg. There is Doppler evidence for moderate pulmonary hypertension. trace to mild pulmonic valvular regurgitation. Compared with SHENG 11/29/2016, LV function is worse. Mitral and tricuspid valves have been repaired Final Reading Physician: Dr Ignacia Medina electronically signed on 01/03/2017 02:21 PM Ordering Physician: Justo Montgomery Performed By: Christen Vargas
[2017-01-03] MEDS ORDERED: WARFARIN SODIUM 2.5 MG TAB PO ONE (16:00)
[2017-01-03] MEDS ORDERED: WARFARIN SODIUM 1 MG TAB PO ONE (16:00)
[2017-01-03] MEDS: FUROSEMIDE 80 MG TAB PO SCH (16:20)
[2017-01-03] MEDS: ONDANSETRON 4 MG/2 ML VIAL IVP PRN (16:30)
[2017-01-03 18:19] LABS: POTASSIUM 4.7 mEq/L (3.5-5.2)
[2017-01-04 00:59] LABS: POTASSIUM 4.7 mEq/L (3.5-5.2)
[2017-01-04 06:22] LABS: HEMATOCRIT 28.8 % (38.0-47.0); HEMOGLOBIN 9.4 g/dL (12.6-16.3); MEAN CELL HEMOGLOBIN CONCENTR. 32.6 g/dL (32.4-36.7); RED BLOOD CELL COUNT 3.03 10^6/uL (4.18-5.33); RED CELL DISTRIBUTION WIDTH 13.2 % (11.5-15.2)
[2017-01-04 06:35] LABS: ANION GAP 7 mEq/L (8-16); CARBON DIOXIDE 28 mEq/l (22-31); CHLORIDE 97 mEq/L (97-110); CREATININE 0.9 mg/dL (0.6-1.0); GLOMERULAR FILTRATION RATE > 60; GLUCOSE 135 mg/dL (70-100); POTASSIUM 4.2 mEq/L (3.5-5.2); SODIUM 132 mEq/L (134-144)
[2017-01-04 06:44] LABS: INR 1.65 (0.83-1.16); PROTIME(PATIENT) 19.6 SEC (12.0-15.0)
--- NOTE | 2017-01-04 08:19 | SOAPPROG ---
SOAP Progress Note Assessment/Plan: Assessment: POD#3 Redo median sternotomy, reduction aortoplasty, complex MV rpr w #34 Physio annuloplasty ring, TVA #36 MC3 ring, CABG x 3 (PORFIRIO-LAD, SV-OM1, SV -RCA), EVH left thigh, prophylactic AtriClip LLAA. Sx severe MR - Myxomatous valve amenable to complex repair. Antithrombotic prophylaxis with Coumadin, target INR 2-3, duration 3 mo. Secondary TR - Annular dilatation amenable to ring annuloplasty. Antithrombotic prophylaxis as per MV. CAD - Full revascularization with CABG3. Secondary prevention with baby ASA, BB as allowed by rhythm, and statin when eating well. Dilated ascending aorta - With preserved tissue integrity. Resection deferred and diameter reduced by aortoplasty. Residential BP control preferentially w BB. Dilated cardiomyopathy with chronic combined CHF - RVSD and LVDD preop. Empirically from CPB on dobutamine gtt, AV paced. Extubated in the OR. Stable hemodynamics without tacchyarrhythmias. Successfully weaned off vasoactive support. Echo yest notable for moderate BiV systolic dysfx, dilated atria, and elev RVSP c/w volume overload. Active diuresis initiated. Rhythm - Early postop sinus node dysfx requiring pacing. Now appears to be recovering sinus mechanism with pronounced 1st degree AVB. Will cont to hold antinodals and proceed with surgical anticoag as risk of PPM lessens. Acute expected blood loss anemia w thrombocytopenia - Stable. No transfusions required. No evidence active coagulopathy. VTE prophylaxis with Coumadin. Plan: Switch to VVI backup pacing @58. Cont lasix 80mg BID. Add Zaroxolyn x 1. Replete K as needed. Consider remove mediastinal drain. Inc activity. Coumadin 2 mg today. 01/04/17 08:17 Subjective: Feels well. No further nausea. Improving appetite. Satisfactory analgesia. Improving IS. Objective: Vital Signs Temp Pulse Resp BP Pulse Ox 36.5 C 103 H 17 101/72 99 01/04/17 08:00 01/04/17 08:00 01/04/17 08:00 01/04/17 08:00 01/04/17 08:00 Laboratory Results 01/04/17 06:05 01/04/17 06:05 01/03/17 01/04/17 01/05/17 05:59 05:59 05:59 Intake Total 2194.5 629 Output Total 2445 1800 Balance -250.5 -1171 PT 19.6 SEC (12.0-15.0) H 01/04/17 06:05 INR 1.65 (0.83-1.16) H 01/04/17 06:05 AV paced yest for intermittent failure A capture. This am appears to have more discernible PWs. Holding rates 70s and switched to backup mode. MAPs 65-75. CXR-> improved insp effort and rt basilar aeration, no undrained effusions, minimal pulm vasc congestion. CTOP near removal criteria. Improving fluid balance and K s/p lasix. +10 kg by weights. Labs ok. Physical Exam - Physical Exam General Appearance: alert, no apparent distress Respiratory: lungs clear, other (Blakes x 3 to bulb suction, serosang drainage. ) Cardiac/Chest: regular rate, rhythm (occ PAC), other (Sternum grossly stable. Sternotomy CDI. A&V wires intact) Abdomen: normal bowel sounds, non-tender, soft Skin: warm/dry Extremities: swelling (1+ gen) ICD10 Worksheet Patient Problems: Problems Problem Status Onset Acute blood loss anemia Acute S/P coronary artery bypass graft x 3 Acute ~01/01/17 S/P mitral valve repair Acute ~01/01/17 S/P tricuspid valve repair Acute ~01/01/17 s/p aortoplasty Acute ~01/01/17 Ascending aorta dilatation Chronic CAD in [place] artery Chronic Chronic combined systolic and diastolic CHF, NYHA class 2 Chronic Secondary pulmonary hypertension Chronic Secondary tricuspid valve regurgitation Chronic Severe mitral regurgitation Chronic Hip arthritis Chronic
[2017-01-04] MEDS: SENNOSIDES/DOCUSATE SODIUM TAB PO SCH ×2 (08:22→20:35)
[2017-01-04] MEDS: FUROSEMIDE 80 MG TAB PO SCH ×2 (08:22→15:29)
[2017-01-04] MEDS: HYDROCODONE/APAP 5/325 TAB PO PRN ×4 (08:22→22:38)
[2017-01-04] MEDS: PANTOPRAZOLE SODIUM 40 MG TAB PO SCH (08:23)
[2017-01-04] MEDS: ASPIRIN EC 81 MG TAB PO SCH (08:23)
--- NOTE | 2017-01-04 09:54 | CPEKG ---
Heart Rate: 70 RR Interval: 857 P-R Interval: 316 QRSD Interval: 144 QT Interval: 428 QTC Interval: 462 P [place]: 0 QRS [place]: 20 T Wave [place]: -18 EKG Severity - ABNORMAL ECG - EKG Impression: SINUS RHYTHM EKG Impression: FIRST DEGREE AV BLOCK EKG Impression: RIGHT BUNDLE BRANCH BLOCK EKG Impression: NONSPECIFIC ST_T WAVE ABNORMAILITES Electronically Signed By: Cr Smith 04-Jan-2017 21:17:33
[2017-01-04 12:12] LABS: POTASSIUM 3.9 mEq/L (3.5-5.2)
[2017-01-04] MEDS ORDERED: METOLAZONE 5 MG TAB PO ONE (14:30)
[2017-01-04] MEDS ORDERED: POTASSIUM CL 20 MEQ TAB PO ONE (15:00)
[2017-01-04] MEDS ORDERED: WARFARIN SODIUM 2 MG TAB PO ONE (16:00)
[2017-01-04 18:33] LABS: POTASSIUM 3.5 mEq/L (3.5-5.2)
[2017-01-04] MEDS: POTASSIUM CL 20 MEQ TAB PO SCH (20:35)
[2017-01-04] MEDS: ATORVASTATIN CALCIUM 40 MG TAB PO SCH (20:35)
[2017-01-05 05:47] LABS: INR 1.49 (0.83-1.16)
[2017-01-05 05:52] LABS: POTASSIUM 3.4 mEq/L (3.5-5.2)
[2017-01-05] MEDS ORDERED: POTASSIUM CL 20 MEQ TAB PO ONE ×2 (08:09→18:47)
--- NOTE | 2017-01-05 08:36 | SOAPPROG ---
SOAP Progress Note Assessment/Plan: Assessment: POD#4 Redo median sternotomy, reduction aortoplasty, complex MV rpr w #34 Physio annuloplasty ring, TVA #36 MC3 ring, CABG x 3 (PORFIRIO-LAD, SV-OM1, SV -RCA), EVH left thigh, prophylactic AtriClip LLAA. Sx severe MR - Myxomatous valve amenable to complex repair. Antithrombotic prophylaxis with Coumadin, target INR 2-3, duration 3 mo. Secondary TR - Annular dilatation amenable to ring annuloplasty. Antithrombotic prophylaxis as per MV. CAD - Full revascularization with CABG3. Secondary prevention with baby ASA, BB as allowed by rhythm, and statin when eating well. Dilated ascending aorta - With preserved tissue integrity. Resection deferred and diameter reduced by aortoplasty. Snf BP control preferentially w BB. Dilated cardiomyopathy with chronic combined CHF - RVSD and LVDD preop. Empirically from CPB on dobutamine gtt, AV paced. Extubated in the OR. Stable hemodynamics without tachyarrhythmias. Successfully weaned off vasoactive support. Echo yest notable for moderate BiV systolic dysfx, dilated atria, and elev RVSP c/w volume overload. Active diuresis initiated. Consider repeat echo prior to discharge. Rhythm - Early postop sinus node dysfx requiring pacing. Recovery of sinus mechanism POD#2 with pronounced 1st degree AVB/RBBB and occ PACs. Onset of PAF w CVR yest pm. Antinodals remain on hold. Consider cards consult if AF more persistent. Amio prn RVR. Keep TCPWs while need for PPM uncertain. Antithrombotic prophylaxis as per MV since JOSE ligated. Acute expected blood loss anemia w thrombocytopenia - Stable. No transfusions required. No evidence active coagulopathy. VTE prophylaxis with Coumadin. Plan: Cont VVI backup pacing @50. Cont lasix 80mg BID/KCL 20mEq BID w addtl K as needed. Remove mediastinal and rt pleural drains. Cont inc activity. Coumadin 3 mg today. Start lisinopril 2.5 mg tonight. Dispo - Anticipate home or Fri if rhythm stable. 01/05/17 08:32 Subjective: Feels fine. Improving mobility and appetite. Satisfactory analgesia. No acute concerns. Objective: Vital Signs Temp Pulse Resp BP Pulse Ox 36.8 C 71 18 128/83 H 100 01/05/17 07:41 01/05/17 07:41 01/05/17 07:41 01/05/17 07:41 01/05/17 07:41 Laboratory Results 01/04/17 06:05 01/05/17 04:24 01/04/17 01/05/17 01/06/17 05:59 05:59 05:59 Intake Total 629 1730 100 Output Total 1800 3895 300 Balance -1171 -2165 -200 PT 18.0 SEC (12.0-15.0) H 01/05/17 04:24 INR 1.49 (0.83-1.16) H 01/05/17 04:24 Freq PACs yest afternoon with eventual episodic AF. Rates < 100. No hypotension. No backup pacing triggered. Suppl O2 req virtually resolved. Excellent diuresis. Now +7kg overall. Labs ok. INR cont to fall on low dose coumadin. Physical Exam - Physical Exam General Appearance: alert, no apparent distress Respiratory: lungs clear, other (blakes x 3 to bulb suction, serosang drainage. Med and rt pleural tubes removed without difficulty) Cardiac/Chest: regular rate, rhythm, other (Sternum grossly stable. Sternotomy CDI. A&V wires intact.) Abdomen: normal bowel sounds, non-tender, soft Skin: warm/dry Extremities: swelling (1+ gen) ICD10 Worksheet Patient Problems: Problems Problem Status Onset Acute blood loss anemia Acute Postoperative atrial fibrillation Acute S/P coronary artery bypass graft x 3 Acute ~01/01/17 S/P mitral valve repair Acute ~01/01/17 S/P tricuspid valve repair Acute ~01/01/17 s/p aortoplasty Acute ~01/01/17 Ascending aorta dilatation Chronic CAD in [place] artery Chronic Chronic combined systolic and diastolic CHF, NYHA class 2 Chronic Secondary pulmonary hypertension Chronic Secondary tricuspid valve regurgitation Chronic Severe mitral regurgitation Chronic Hip arthritis Chronic
[2017-01-05] MEDS: POLYETHYLENE GLYCOL 3350 17 GM PKT PO PRN (08:46)
[2017-01-05] MEDS: ASPIRIN EC 81 MG TAB PO SCH (08:47)
[2017-01-05] MEDS: FUROSEMIDE 80 MG TAB PO SCH ×2 (08:47→15:20)
[2017-01-05] MEDS: SENNOSIDES/DOCUSATE SODIUM TAB PO SCH ×2 (08:47→19:36)
[2017-01-05] MEDS: POTASSIUM CL 20 MEQ TAB PO SCH ×2 (08:47→19:37)
[2017-01-05] MEDS: PANTOPRAZOLE SODIUM 40 MG TAB PO SCH (08:47)
[2017-01-05] MEDS: HYDROCODONE/APAP 5/325 TAB PO PRN ×3 (11:11→23:08)
[2017-01-05] MEDS: ACETAMINOPHEN 325 MG TAB PO PRN (13:28)
[2017-01-05] MEDS: ONDANSETRON 4 MG/2 ML VIAL IVP PRN (15:22)
[2017-01-05] MEDS ORDERED: WARFARIN SODIUM 3 MG TAB PO ONE (16:00)
[2017-01-05] MEDS: LISINOPRIL 2.5 MG TAB PO SCH (19:36)
[2017-01-05] MEDS: ATORVASTATIN CALCIUM 40 MG TAB PO SCH (19:36)
[2017-01-06] MEDS: HYDROCODONE/APAP 5/325 TAB PO PRN ×3 (00:05→18:22)
[2017-01-06 06:09] LABS: HEMATOCRIT 25.7 % (38.0-47.0); HEMOGLOBIN 8.8 g/dL (12.6-16.3); MEAN CELL HEMOGLOBIN 31.1 pg (27.9-34.1); MEAN CELL HEMOGLOBIN CONCENTR. 34.2 g/dL (32.4-36.7); MEAN CELL VOLUME 90.8 fL (81.5-99.8); RED BLOOD CELL COUNT 2.83 10^6/uL (4.18-5.33); RED CELL DISTRIBUTION WIDTH 12.4 % (11.5-15.2)
[2017-01-06 06:17] LABS: INR 1.72 (0.83-1.16); PROTIME(PATIENT) 20.2 SEC (12.0-15.0)
[2017-01-06 06:45] LABS: ANION GAP 4 mEq/L (8-16); CARBON DIOXIDE 39 mEq/l (22-31); CHLORIDE 88 mEq/L (97-110); CREATININE 0.7 mg/dL (0.6-1.0); GLOMERULAR FILTRATION RATE > 60; GLUCOSE 109 mg/dL (70-100); POTASSIUM 3.3 mEq/L (3.5-5.2); SODIUM 131 mEq/L (134-144)
[2017-01-06] MEDS: traMADol 50 MG TAB PO PRN (07:59)
[2017-01-06] MEDS: SENNOSIDES/DOCUSATE SODIUM TAB PO SCH ×2 (08:00→22:14)
[2017-01-06] MEDS: ASPIRIN EC 81 MG TAB PO SCH (08:00)
[2017-01-06] MEDS: FUROSEMIDE 80 MG TAB PO SCH (08:00)
[2017-01-06] MEDS: POTASSIUM CL 20 MEQ TAB PO SCH ×2 (08:01→20:44)
--- NOTE | 2017-01-06 08:01 | SOAPPROG ---
EM Progress Note Assessment/Plan: POD#5 Redo median sternotomy, aortoplasty, complex MV rpr w #34 Physio annuloplasty ring, TVA #36 MC3 ring, CABG x 3 (PORFIRIO-LAD, SV-OM1, SV-RCA), EVH left thigh, prophylactic AtriClip LLAA. Sx severe MR - Myxomatous valve amenable to complex repair. Antithrombotic prophylaxis with Coumadin, target INR 2-3, duration 3 mo. Secondary TR - Annular dilatation amenable to ring annuloplasty. Antithrombotic prophylaxis as per MV. CAD - Full revascularization with CABG3. Secondary prevention with baby ASA, statin. BB contraindicated d/t JR. Dilated ascending aorta - With preserved tissue integrity. Resection deferred and diameter reduced by aortoplasty. Fpc BP control preferentially w BB. Dilated cardiomyopathy with chronic combined CHF - RVSD and LVDD. Continue Lasix BID, ACEi. Acute expected blood loss anemia w thrombocytopenia - Stable. No transfusions required. No evidence active coagulopathy. VTE prophylaxis with Coumadin. MCKENNA with hyperkalemia - resolved Atrial/junctional arrhythmias - Currently SR/PAF without need for backup pacing over 24 hours. Likely no need for PPM implantation. Will keep pacing wires overnight with pacer set to VVI 50 and consider removal tomorrow. Thromboprophylaxis with Coumadin. Subjective: Feels well. Denies CP/SOB. Objective: Vital Signs Temp Pulse Resp BP Pulse Ox 36.4 C 86 18 104/71 91 L 01/06/17 07:45 01/06/17 07:45 01/06/17 07:45 01/06/17 07:45 01/06/17 07:45 Laboratory Results 01/06/17 05:50 01/06/17 05:50 01/05/17 01/06/17 01/07/17 05:59 05:59 05:59 Intake Total 1730 1350 Output Total 3895 3760 Balance -2165 -2410 PT 20.2 SEC (12.0-15.0) H 01/06/17 05:50 INR 1.72 (0.83-1.16) H 01/06/17 05:50 Physical Exam - Physical Exam General Appearance: WD/WN, alert, no apparent distress EENT: normal ENT inspection Neck: normal inspection Respiratory: No respiratory distress Cardiac/Chest: regular rate, rhythm, irregularly irregular, other (Braulio CT x1 and AV PW intact.) Abdomen: non-tender, soft, No distended Skin: normal color, warm/dry Extremities: pedal edema Neuro/Psych: no motor/sensory deficits, alert, normal mood/affect, oriented x 3 ICD10 Worksheet Patient Problems: Problems Problem Status Onset Acute blood loss anemia Acute Postoperative atrial fibrillation Acute S/P coronary artery bypass graft x 3 Acute ~01/01/17 S/P mitral valve repair Acute ~01/01/17 S/P tricuspid valve repair Acute ~01/01/17 s/p aortoplasty Acute ~01/01/17 Ascending aorta dilatation Chronic CAD in [place] artery Chronic Chronic combined systolic and diastolic CHF, NYHA class 2 Chronic Secondary pulmonary hypertension Chronic Secondary tricuspid valve regurgitation Chronic Severe mitral regurgitation Chronic Hip arthritis Chronic
[2017-01-06] MEDS: ONDANSETRON 4 MG/2 ML VIAL IVP PRN (09:39)
[2017-01-06] MEDS: POTASSIUM Cl (KCl) 50 ML IV SCH ×5 (09:41→22:15)
--- NOTE | 2017-01-06 11:46 | SOAPPROG ---
SOAP Progress Note Assessment/Plan: Assessment: 61 y/o woman s/p redo sternotomy with MV and TV annuloplasties, CABG and JOSE ligation with preop LVEF 40%. POD #5 doing okay off IV inotropes and pressors. Electrical system waking up with mostly sinus rhythm with some PAF. Still about 5lbs above [facility] weight. PLAN: 1)decrease Lasix to 40mg PO BID 2)start Toprol XL 25mg PO qday watching for bradyarrhythmias (has LVEF 35% some needs some beta blockers). 3)ecg qam x 2 days. 4)probably home Wed AM if continues to progress well and no severe bradyarrhythmias on low dose beta blockers. 01/06/17 11:43 Subjective: feels overall stronger. Transferred out of ICU. Ambulated with PT for 200ft without sx. Denies rest shortness of breath, CP, palpitations, PND or near syncope. Still some leg edema bilaterally. Objective: Vital Signs Temp Pulse Resp BP Pulse Ox 36.6 C 78 18 125/63 H 99 01/06/17 11:02 01/06/17 11:02 01/06/17 11:02 01/06/17 11:02 01/06/17 11:02 Laboratory Results 01/06/17 05:50 01/06/17 05:50 01/05/17 01/06/17 01/07/17 05:59 05:59 05:59 Intake Total 1730 1350 120 Output Total 3895 3760 550 Balance -2165 -2410 -430 PT 20.2 SEC (12.0-15.0) H 01/06/17 05:50 INR 1.72 (0.83-1.16) H 01/06/17 05:50 Physical Exam - Physical Exam General Appearance: alert EENT: PERRL/EOMI Neck: non-tender Respiratory: lungs clear Cardiac/Chest: regular rate, rhythm, JVD, systolic murmur (1/6 MARTIN heard), No gallop, No friction rub Peripheral Pulses: 2+: carotid (R), carotid (L), femoral (R), femoral (L), dorsalis-pedis (R), dorsalis-pedis (L) Abdomen: non-tender, No distended, No guarding Skin: warm/dry Extremities: pedal edema (1+ edema to mid calves.) Neuro/Psych: alert ICD10 Worksheet Patient Problems: Problems Problem Status Onset Acute blood loss anemia Acute Postoperative atrial fibrillation Acute S/P coronary artery bypass graft x 3 Acute ~01/01/17 S/P mitral valve repair Acute ~01/01/17 S/P tricuspid valve repair Acute ~01/01/17 s/p aortoplasty Acute ~01/01/17 Ascending aorta dilatation Chronic CAD in [place] artery Chronic Chronic combined systolic and diastolic CHF, NYHA class 2 Chronic Secondary pulmonary hypertension Chronic Secondary tricuspid valve regurgitation Chronic Severe mitral regurgitation Chronic Hip arthritis Chronic
[2017-01-06] MEDS: METOPROLOL SUCCINATE XR 25 MG TAB PO SCH (13:38)
[2017-01-06] MEDS ORDERED: WARFARIN SODIUM 2 MG TAB PO ONE (16:00)
[2017-01-06] MEDS: FUROSEMIDE 40 MG TAB PO SCH (16:00)
[2017-01-06] MEDS: ATORVASTATIN CALCIUM 40 MG TAB PO SCH (20:44)
[2017-01-06] MEDS: LISINOPRIL 2.5 MG TAB PO SCH (20:45)
[2017-01-07] MEDS: traMADol 50 MG TAB PO PRN ×2 (05:43→20:22)
[2017-01-07 05:59] LABS: INR 1.76 (0.83-1.16); PROTIME(PATIENT) 20.6 SEC (12.0-15.0)
[2017-01-07 06:11] LABS: ANION GAP 7 mEq/L (8-16); CARBON DIOXIDE 34 mEq/l (22-31); CHLORIDE 87 mEq/L (97-110); CREATININE 0.7 mg/dL (0.6-1.0); GLOMERULAR FILTRATION RATE > 60; GLUCOSE 105 mg/dL (70-100); POTASSIUM 3.7 mEq/L (3.5-5.2); SODIUM 128 mEq/L (134-144)
--- NOTE | 2017-01-07 07:37 | SOAPPROG ---
SOAP Progress Note Assessment/Plan: Assessment: POD#6 Redo median sternotomy, reduction aortoplasty, complex MV rpr w #34 Physio annuloplasty ring, TVA #36 MC3 ring, CABG x 3 (PORFIRIO-LAD, SV-OM1, SV -RCA), EVH left thigh, prophylactic AtriClip LLAA. Sx severe MR - Myxomatous valve amenable to complex repair. Antithrombotic prophylaxis with Coumadin, target INR 2-3, duration 3 mo. Secondary TR - Annular dilatation amenable to ring annuloplasty. Antithrombotic prophylaxis as per MV. CAD - Full revascularization with CABG3. Secondary prevention with baby ASA, BB as allowed by rhythm, and statin when eating well. Dilated ascending aorta - With preserved tissue integrity. Resection deferred and diameter reduced by aortoplasty. Usp BP control preferentially w BB. Dilated cardiomyopathy with chronic combined CHF - RVSD and LVDD preop. Empirically from CPB on dobutamine gtt, AV paced. Extubated in the OR. Stable hemodynamics without tachyarrhythmias. Successfully weaned off vasoactive support. Echo 4/8 notable for moderate BiV systolic dysfx, dilated atria, and elev RVSP c/w volume overload. Active diuresis initiated. Surveillance imaging per cards. Rhythm - Early postop sinus node dysfx requiring pacing. Recovery of sinus mechanism POD#2 with pronounced 1st degree AVB/RBBB and occ PACs. Onset of PAF w CVR 4/8 and BB trial started. No backup pacing triggered thus far. TCPWs to be clipped. Antithrombotic prophylaxis as per MV since JOSE ligated. Acute expected blood loss anemia w thrombocytopenia - Stable. No transfusions required. No evidence active coagulopathy. VTE prophylaxis with Coumadin. Plan: Cont Toprol XL 25mg daily. Cont VVI backup @50. Clip TCPWs tomorrow if no pacing triggered. Cont lasix 40mg BID/KCL 40mEq BID. Cont lisinopril 2.5 mg hs. Cont inc activity. Consider pleural tube removal this afternoon. Coumadin 2.5 mg today. Wean O2. Dispo - Anticipate home tomorrow. 01/07/17 07:35 Subjective: Doing ok. Improving appetite. Loose stools resolving. Tolerating light activity with relative ease. Nervous about going home tomorrow. Objective: Vital Signs Temp Pulse Resp BP Pulse Ox 36.9 C 74 16 105/53 L 98 01/07/17 07:16 01/07/17 07:16 01/07/17 07:16 01/07/17 07:16 01/07/17 07:16 Laboratory Results 01/07/17 05:35 01/07/17 05:35 01/06/17 01/07/17 01/08/17 05:59 05:59 05:59 Intake Total 1350 1485 Output Total 3760 3110 Balance -2410 -1625 PT 20.6 SEC (12.0-15.0) H 01/07/17 05:35 INR 1.76 (0.83-1.16) H 01/07/17 05:35 Holding SR 70s with occ PACs. BP stable. Virtually off suppl O2. Diuresing well. Still +5 kg overall. Pleural tube output still a bit high to pull. INR on the rise. Physical Exam - Physical Exam General Appearance: alert, no apparent distress Respiratory: lungs clear (grossly), other (pl lauren to bulb suction, mostly serous drainage) Cardiac/Chest: regular rate, rhythm, other (Sternum grossly stable. Sternotomy and LLE venotomy CDI. A&V wires intact) Abdomen: non-tender, soft Skin: warm/dry Extremities: swelling (1-2+ dependent edema) ICD10 Worksheet Patient Problems: Problems Problem Status Onset Acute blood loss anemia Acute Postoperative atrial fibrillation Acute S/P coronary artery bypass graft x 3 Acute ~01/01/17 S/P mitral valve repair Acute ~01/01/17 S/P tricuspid valve repair Acute ~01/01/17 s/p aortoplasty Acute ~01/01/17 Ascending aorta dilatation Chronic CAD in [place] artery Chronic Chronic combined systolic and diastolic CHF, NYHA class 2 Chronic Secondary pulmonary hypertension Chronic Secondary tricuspid valve regurgitation Chronic Severe mitral regurgitation Chronic Hip arthritis Chronic
[2017-01-07] MEDS: ASPIRIN EC 81 MG TAB PO SCH (08:08)
[2017-01-07] MEDS: METOPROLOL SUCCINATE XR 25 MG TAB PO SCH (08:08)
[2017-01-07] MEDS: FUROSEMIDE 40 MG TAB PO SCH ×2 (08:08→15:02)
[2017-01-07] MEDS: HYDROCODONE/APAP 5/325 TAB PO PRN ×2 (08:08→15:02)
[2017-01-07] MEDS: POTASSIUM CL 20 MEQ TAB PO SCH ×2 (08:08→20:24)
--- NOTE | 2017-01-07 08:53 | CPEKG ---
Heart Rate: 74 RR Interval: 811 P-R Interval: 288 QRSD Interval: 148 QT Interval: 432 QTC Interval: 480 P [place]: 94 QRS [place]: 32 T Wave [place]: 105 EKG Severity - ABNORMAL ECG - EKG Impression: SINUS RHYTHM EKG Impression: VENTRICULAR TRIGEMINY EKG Impression: FIRST DEGREE AV BLOCK EKG Impression: RIGHT BUNDLE BRANCH BLOCK EKG Impression: BORDERLINE ST DEPRESSION, LATERAL LEADS Electronically Signed By: Cr Smith 09-Jan-2017 00:54:53
[2017-01-07] MEDS ORDERED: WARFARIN SODIUM 2.5 MG TAB PO ONE (16:00)
[2017-01-07] MEDS: LISINOPRIL 2.5 MG TAB PO SCH (20:24)
[2017-01-07] MEDS: ATORVASTATIN CALCIUM 40 MG TAB PO SCH (20:24)
[2017-01-08] MEDS: traMADol 50 MG TAB PO PRN ×3 (02:00→21:16)
[2017-01-08 04:44] LABS: HEMOGLOBIN 8.3 g/dL (12.6-16.3); MEAN CELL HEMOGLOBIN 31.9 pg (27.9-34.1); MEAN CELL HEMOGLOBIN CONCENTR. 33.2 g/dL (32.4-36.7); MEAN CELL VOLUME 96.2 fL (81.5-99.8); RED BLOOD CELL COUNT 2.6 10^6/uL (4.18-5.33); RED CELL DISTRIBUTION WIDTH 13.9 % (11.5-15.2)
[2017-01-08 05:09] LABS: ANION GAP 7 mEq/L (8-16); CALCIUM 8.1 mg/dL (8.5-10.4); CARBON DIOXIDE 33 mEq/l (22-31); CHLORIDE 88 mEq/L (97-110); CREATININE 0.6 mg/dL (0.6-1.0); GLOMERULAR FILTRATION RATE > 60; GLUCOSE 118 mg/dL (70-100); POTASSIUM 3.7 mEq/L (3.5-5.2); SODIUM 128 mEq/L (134-144)
--- NOTE | 2017-01-08 07:56 | SOAPPROG ---
SOAP Progress Note Assessment/Plan: Assessment: POD#7 Redo median sternotomy, reduction aortoplasty, complex MV rpr w #34 Physio annuloplasty ring, TVA #36 MC3 ring, CABG x 3 (PORFIRIO-LAD, SV-OM1, SV -RCA), EVH left thigh, prophylactic AtriClip LLAA. Sx severe MR - Myxomatous valve amenable to complex repair. Antithrombotic prophylaxis with Coumadin, target INR 2-3, duration 3 mo. Secondary TR - Annular dilatation amenable to ring annuloplasty. Antithrombotic prophylaxis as per MV. CAD - Full revascularization with CABG3. Secondary prevention with baby ASA, BB as allowed by rhythm, and statin when eating well. Dilated ascending aorta - With preserved tissue integrity. Resection deferred and diameter reduced by aortoplasty. Halfway BP control preferentially w BB. Dilated cardiomyopathy with chronic combined CHF - RVSD and LVDD preop. Empirically from CPB on dobutamine gtt, AV paced. Extubated in the OR. Stable hemodynamics without tachyarrhythmias. Successfully weaned off vasoactive support. Echo 4/8 notable for moderate BiV systolic dysfx, dilated atria, and elev RVSP c/w volume overload. Active diuresis initiated. Surveillance imaging per cards. Rhythm - Early postop sinus node dysfx requiring pacing. Recovery of sinus mechanism POD#2 with pronounced 1st degree AVB/RBBB and occ PACs. Onset of PAF w CVR 4/8 and BB trial started. No backup pacing triggered and TCPWs clipped. Antithrombotic prophylaxis as per MV since JOSE ligated. Acute expected blood loss anemia w thrombocytopenia - Stable. No transfusions required. No evidence active coagulopathy. VTE prophylaxis with Coumadin. Plan: Pleural drain removed. TCPWs clipped. Cont lasix 40mg BID/KCL 40mEq BID. Cont lisinopril 2.5 mg hs. Cont Coumadin 2.5 mg daily. Enrolled at [facility]. Dispo - Anticipate home this afternoon. Instructions re diet, meds, activity, wound care and f/u to be reviewed in presence of . 01/08/17 07:54 Subjective: Doing ok. Slept well on Tramadol. Less anxious about going home. Objective: Vital Signs Temp Pulse Resp BP Pulse Ox 36.6 C 86 16 107/71 97 01/08/17 04:00 01/08/17 04:00 01/08/17 04:00 01/08/17 04:00 01/08/17 04:00 Laboratory Results 01/08/17 04:35 01/08/17 04:35 01/07/17 01/08/17 01/09/17 05:59 05:59 05:59 Intake Total 1485 1100 Output Total 3110 980 Balance -1625 120 PT 20.6 SEC (12.0-15.0) H 01/07/17 05:35 INR 1.76 (0.83-1.16) H 01/07/17 05:35 Holding SR. No odilia or backup pacing. Pleural tube drainage remains serous, output below removal criteria. CXR no pulm vasc congestion or undrained effusion. UOP 2950 last shift. Still +5 kg overall. Labs sugg contraction alkalosis. INR slow but steady rise. Physical Exam - Physical Exam General Appearance: alert, no apparent distress, anxiety (lots of questions, perseverating on "what ifs" and minutiae) Respiratory: lungs clear, other (pleural lauren to bulb suction, clear serous drainage; stripped and pulled without incident) Cardiac/Chest: regular rate, rhythm, other (Sternum grossly stable. Sternotomy and LLE venotomy CDI. A wires removed without any resistance. V wires clipped at skin.) Abdomen: non-tender, soft Skin: normal color Extremities: swelling (trace dependent) ICD10 Worksheet Patient Problems: Problems Problem Status Onset Acute blood loss anemia Acute Postoperative atrial fibrillation Acute S/P coronary artery bypass graft x 3 Acute ~01/01/17 S/P mitral valve repair Acute ~01/01/17 S/P tricuspid valve repair Acute ~01/01/17 s/p aortoplasty Acute ~01/01/17 Ascending aorta dilatation Chronic CAD in [place] artery Chronic Chronic combined systolic and diastolic CHF, NYHA class 2 Chronic Secondary pulmonary hypertension Chronic Secondary tricuspid valve regurgitation Chronic Severe mitral regurgitation Chronic Hip arthritis Chronic
[2017-01-08] MEDS: FUROSEMIDE 40 MG TAB PO SCH (08:03)
[2017-01-08] MEDS: POTASSIUM CL 20 MEQ TAB PO SCH (08:03)
[2017-01-08] MEDS: METOPROLOL SUCCINATE XR 25 MG TAB PO SCH (08:04)
[2017-01-08] MEDS: ASPIRIN EC 81 MG TAB PO SCH (08:04)
--- NOTE | 2017-01-08 08:50 | CPEKG ---
Heart Rate: 87 RR Interval: 690 P-R Interval: 240 QRSD Interval: 148 QT Interval: 400 QTC Interval: 482 P [place]: 37 QRS [place]: 43 T Wave [place]: 84 EKG Severity - ABNORMAL ECG - EKG Impression: SINUS RHYTHM EKG Impression: FIRST DEGREE AV BLOCK EKG Impression: RIGHT BUNDLE BRANCH BLOCK EKG Impression: PROBABLE LVH WITH SECONDARY REPOL ABNRM EKG Impression: VENTRICULAR ECTOPY IS NO LONGER NOTED Electronically Signed By: Cr Smith 09-Jan-2017 13:02:33
--- NOTE | 2017-01-08 12:07 | SOAPPROG ---
SOAP Progress Note Assessment/Plan: Assessment: 61 y/o woman s/p redo sternotomy with MV and TV annuloplasties, CABG and JOSE ligation with preop LVEF 40%. POD #7 doing okay in/out of afib with controlled ventricular rate and NSR. I think her mild hyponatremia is from overdiuresis. REC: 1)decrease lasix to 20mg PO QAM. 2)start Aldactone 25mg PO qday. 3)start Ferrous Sulfate 325mg PO BID for correction of anemia. 4)stop KCL 5)home on current dose of Toprol XL and Lisinopril 6)buy home BP cuff and BP and Pulse BID. Call if HR >95bpm or < 45bpm often. 7)f/u CT surgery and CHF-[facility] in one week with ecg. 8)labs in five days (CBC and BMP and PT/INR) 9)okay to discharge home today with supplemental O2 01/08/17 12:04 Subjective: overall continues to feel stronger daily. Ambulated two laps around nursing floor with PT. Denies CP, near syncope, PND or palpitations. Objective: Vital Signs Temp Pulse Resp BP Pulse Ox 36.7 C 89 20 118/71 84 L 01/08/17 08:00 01/08/17 08:00 01/08/17 08:00 01/08/17 08:00 01/08/17 11:38 Laboratory Results 01/08/17 04:35 01/08/17 04:35 01/07/17 01/08/17 01/09/17 05:59 05:59 05:59 Intake Total 1485 1100 Output Total 3110 980 60 Balance -1625 120 -60 PT 20.6 SEC (12.0-15.0) H 01/07/17 05:35 INR 1.76 (0.83-1.16) H 01/07/17 05:35 Physical Exam - Physical Exam General Appearance: alert EENT: normal ENT inspection Neck: non-tender Respiratory: lungs clear Cardiac/Chest: systolic murmur (1/6 MARTIN heard), irregularly irregular, No gallop , No JVD Peripheral Pulses: 2+: carotid (R), carotid (L), femoral (R), femoral (L), dorsalis-pedis (R), dorsalis-pedis (L) Abdomen: non-tender, No guarding Skin: warm/dry Extremities: pedal edema (trace bilateral pretibial edema.) Neuro/Psych: alert ICD10 Worksheet Patient Problems: Problems Problem Status Onset Acute blood loss anemia Acute Postoperative atrial fibrillation Acute S/P coronary artery bypass graft x 3 Acute ~01/01/17 S/P mitral valve repair Acute ~01/01/17 S/P tricuspid valve repair Acute ~01/01/17 s/p aortoplasty Acute ~01/01/17 Ascending aorta dilatation Chronic CAD in [place] artery Chronic Chronic combined systolic and diastolic CHF, NYHA class 2 Chronic Secondary pulmonary hypertension Chronic Secondary tricuspid valve regurgitation Chronic Severe mitral regurgitation Chronic Hip arthritis Chronic
[2017-01-08] MEDS ORDERED: AMIODARONE HCL 100 ML IV ONE (13:18)
[2017-01-08] MEDS ORDERED: AMIODARONE HCL 200 ML IV ONE (13:18)
[2017-01-08] MEDS: POLYETHYLENE GLYCOL 3350 17 GM PKT PO PRN (15:53)
[2017-01-08] MEDS ORDERED: WARFARIN SODIUM 2.5 MG TAB PO SCH (16:00)
[2017-01-08] MEDS: FERROUS SULFATE 325 MG TAB PO SCH (17:59)
[2017-01-08] MEDS ORDERED: FERROUS SULFATE 325 MG TAB PO SCH (18:00)
[2017-01-08] MEDS ORDERED: AMIODARONE HCL 540 MG in D5W 300 ML IV ONE (21:00)
[2017-01-08] MEDS: LISINOPRIL 2.5 MG TAB PO SCH (21:02)
[2017-01-08] MEDS: ATORVASTATIN CALCIUM 40 MG TAB PO SCH (21:02)
[2017-01-09] MEDS: traMADol 50 MG TAB PO PRN ×3 (05:46→21:26)
[2017-01-09 06:07] LABS: INR 1.57 (0.83-1.16); PROTIME(PATIENT) 18.8 SEC (12.0-15.0)
[2017-01-09 06:30] LABS: ANION GAP 4 mEq/L (8-16); CALCIUM 8.2 mg/dL (8.5-10.4); CARBON DIOXIDE 33 mEq/l (22-31); CHLORIDE 89 mEq/L (97-110); CREATININE 0.7 mg/dL (0.6-1.0); GLOMERULAR FILTRATION RATE > 60; GLUCOSE 125 mg/dL (70-100); POTASSIUM 4.5 mEq/L (3.5-5.2); SODIUM 126 mEq/L (134-144)
--- NOTE | 2017-01-09 07:25 | SOAPPROG ---
EM Progress Note Assessment/Plan: POD#8 Redo median sternotomy, aortoplasty, complex MV rpr w #34 Physio annuloplasty ring, TVA #36 MC3 ring, CABG x 3 (PORFIRIO-LAD, SV-OM1, SV-RCA), EVH left thigh, prophylactic AtriClip LLAA. Sx severe MR - Myxomatous valve amenable to complex repair. Antithrombotic prophylaxis with Coumadin, target INR 2-3, duration 3 mo. Secondary TR - Annular dilatation amenable to ring annuloplasty. Antithrombotic prophylaxis as per MV. CAD - Full revascularization with CABG3. Secondary prevention with baby ASA, statin, BB Dilated ascending aorta - With preserved tissue integrity. Resection deferred and diameter reduced by aortoplasty. BP control with BB. Dilated cardiomyopathy with chronic combined CHF - RVSD and LVDD. Continue Lasix BID, ACEi. Acute expected blood loss anemia w thrombocytopenia - Stable. No transfusions required. No evidence active coagulopathy. VTE prophylaxis with Coumadin. MCKENNA with hyperkalemia - resolved Atrial/junctional arrhythmias/1st degree AVB - Continue BB, amiodarone 100 mg x 1 month, thromboprophylaxis with Coumadin. HypoNa - NS x 1 L. Recheck Na. 01/09/17 09:52 Subjective: Feels well. No CP/palpitations/SOB. Objective: Vital Signs Temp Pulse Resp BP Pulse Ox 36.6 C 67 16 110/64 98 01/09/17 04:00 01/09/17 04:00 01/09/17 04:00 01/09/17 04:00 01/09/17 04:00 Laboratory Results 01/08/17 04:35 01/09/17 05:45 01/08/17 01/09/17 01/10/17 05:59 05:59 05:59 Intake Total 1100 690 Output Total 980 1120 Balance 120 -430 PT 18.8 SEC (12.0-15.0) H 01/09/17 05:45 INR 1.57 (0.83-1.16) H 01/09/17 05:45 Physical Exam - Physical Exam General Appearance: WD/WN, alert, no apparent distress EENT: normal ENT inspection Neck: normal inspection Respiratory: No respiratory distress Cardiac/Chest: regular rate, rhythm, irregularly irregular Abdomen: normal bowel sounds, soft, No distended Skin: normal color, warm/dry Extremities: pedal edema Neuro/Psych: no motor/sensory deficits, alert, normal mood/affect, oriented x 3 ICD10 Worksheet Patient Problems: Problems Problem Status Onset Acute blood loss anemia Acute Postoperative atrial fibrillation Acute S/P coronary artery bypass graft x 3 Acute ~01/01/17 S/P mitral valve repair Acute ~01/01/17 S/P tricuspid valve repair Acute ~01/01/17 s/p aortoplasty Acute ~01/01/17 Ascending aorta dilatation Chronic CAD in [place] artery Chronic Chronic combined systolic and diastolic CHF, NYHA class 2 Chronic Secondary pulmonary hypertension Chronic Secondary tricuspid valve regurgitation Chronic Severe mitral regurgitation Chronic Hip arthritis Chronic
--- NOTE | 2017-01-09 07:32 | PDCARPN ---
Cardiology Progress Note Chief Complaint: Postoperative atrial fibrillation Assessment/Plan: Assessment: 61-year-old female status post mitral valve repair, tricuspid valve repair, CABG , aortoplasty. Developed junctional rhythms postoperatively and prior to discharge developed atrial fibrillation. Underlying rhythm is right bundle-branch block with first- degree heart block prior to AFIB. Patient was seen 01/08/17, this is a late progress note. Plan: -Anticoagulation per surgical team - continue beta-blockers -short-term amiodarone use, will give IV amiodarone for 24 hours, transition to p.o. amiodarone, 200 mg a day for 1 month after which she will discontinue. Discussed side effects of amiodarone with her and her and they are aware of pulmonary/liver and other toxicities. -At this time does not have an indication for permanent pacemaker implantation. -iraj Moss and Steff Richmond 01/09/17 07:31 01/09/17 07:31 Objective: Vital Signs (8 Hrs) Temp Pulse Resp BP Pulse Ox 01/09/17 04:00 36.6 C 67 16 110/64 98 Intake/Output (24 Hrs) 01/07/17 01/08/17 01/09/17 11:59 11:59 11:59 Intake Total 1665 800 690 Output Total 2820 960 880 Balance -1155 -160 -190 Intake: Oral (ml) 1400 800 470 IV Intake (ml) 55 IV Infused (ml) 210 220 Amiodarone HCl 100 ml @ 100 600 mls/hr IV ONCE ONE Rx #:[id number] Amiodarone HCl 200 ml @ 120 33.333 mls/hr IV ONCE ONE Rx#:[id number] POTASSIUM Cl (KCl) 50 ml 210 @ 25 mls/hr IV Q2H [facility] Rx #:[id number] Output: Urine (ml) 2600 755 880 Toilet 2600 755 880 Chest Tube Drainage (ml) 220 205 Location 3 Left Pleural 220 205 Other: Weight 81.4 kg 81.6 kg 81.8 kg Output Comment Toilet miralax provided Number of Voids Toilet 1 1 1 Number of Stools Toilet 3 0 0 Result Diagrams: 01/08/17 04:35 01/09/17 05:45 ICD10 Worksheet Patient Problems: Problems Problem Status Onset Postoperative atrial fibrillation Acute Secondary pulmonary hypertension Chronic Acute blood loss anemia Acute S/P tricuspid valve repair Acute ~01/01/17 S/P mitral valve repair Acute ~01/01/17 s/p aortoplasty Acute ~01/01/17 S/P coronary artery bypass graft x 3 Acute ~01/01/17 Ascending aorta dilatation Chronic Chronic combined systolic and diastolic CHF, NYHA class 2 Chronic CAD in [place] artery Chronic Secondary tricuspid valve regurgitation Chronic Severe mitral regurgitation Chronic Hip arthritis Chronic
[2017-01-09] MEDS ORDERED: FUROSEMIDE 20 MG TAB PO SCH (09:00)
[2017-01-09] MEDS ORDERED: NS 1,000 ML IV SCH (09:15)
[2017-01-09] MEDS: ASPIRIN EC 81 MG TAB PO SCH (09:20)
[2017-01-09] MEDS: METOPROLOL SUCCINATE XR 25 MG TAB PO SCH (09:20)
[2017-01-09] MEDS: FERROUS SULFATE 325 MG TAB PO SCH ×2 (09:21→17:59)
[2017-01-09] MEDS: SPIRONOLACTONE 25 MG TAB PO SCH (09:22)
[2017-01-09] MEDS ORDERED: FUROSEMIDE 40 MG TAB PO SCH (15:00)
--- NOTE | 2017-01-09 15:09 | SOAPPROG ---
SOAP Progress Note Assessment/Plan: Assessment: 61 y/o woman s/p redo sternotomy with MV and TV annuloplasties, CABG and JOSE ligation with preop LVEF 40%. POD #8 with PAF now in NSR after IV Amiodarone. I wonder if her hyponatremia is overdiuresis. PLAN: 1)Amiodarone IV infusion then PO BID as per EP-Saima. 2)stop Lasix 3)IVF NS x one liter and recheck BMP tonight. 4)Probably home tommorrow if in NSR and serum NA improving. 01/09/17 15:06 Subjective: feels better than yesterday. Denies CP, rest shortness of breath, PND or near syncope. Objective: Vital Signs Temp Pulse Resp BP Pulse Ox 36.7 C 69 18 108/64 98 01/09/17 12:00 01/09/17 12:00 01/09/17 12:00 01/09/17 12:00 01/09/17 12:00 Laboratory Results 01/08/17 04:35 01/09/17 05:45 01/08/17 01/09/17 01/10/17 05:59 05:59 05:59 Intake Total 1100 690 Output Total 980 1120 Balance 120 -430 PT 18.8 SEC (12.0-15.0) H 01/09/17 05:45 INR 1.57 (0.83-1.16) H 01/09/17 05:45 Physical Exam - Physical Exam General Appearance: alert EENT: PERRL/EOMI Neck: non-tender Respiratory: lungs clear Cardiac/Chest: regular rate, rhythm, No gallop, No JVD Peripheral Pulses: 2+: carotid (R), carotid (L), femoral (R), femoral (L), dorsalis-pedis (R), dorsalis-pedis (L) Abdomen: non-tender, No distended, No guarding Skin: warm/dry Extremities: pedal edema (trace bilateral pretibial edema.) Neuro/Psych: alert ICD10 Worksheet Patient Problems: Problems Problem Status Onset Acute blood loss anemia Acute Postoperative atrial fibrillation Acute S/P coronary artery bypass graft x 3 Acute ~01/01/17 S/P mitral valve repair Acute ~01/01/17 S/P tricuspid valve repair Acute ~01/01/17 s/p aortoplasty Acute ~01/01/17 Ascending aorta dilatation Chronic CAD in [place] artery Chronic Chronic combined systolic and diastolic CHF, NYHA class 2 Chronic Secondary pulmonary hypertension Chronic Secondary tricuspid valve regurgitation Chronic Severe mitral regurgitation Chronic Hip arthritis Chronic
[2017-01-09] MEDS ORDERED: WARFARIN SODIUM 5 MG TAB PO ONE (16:00)
[2017-01-09] MEDS ORDERED: WARFARIN SODIUM 4 MG TAB PO ONE (16:00)
[2017-01-09] MEDS: POTASSIUM CL 20 MEQ TAB PO SCH ×2 (16:01→19:44)
[2017-01-09 18:34] LABS: ANION GAP 7 mEq/L (8-16); CALCIUM 8.1 mg/dL (8.5-10.4); CARBON DIOXIDE 30 mEq/l (22-31); CHLORIDE 90 mEq/L (97-110); CREATININE 0.6 mg/dL (0.6-1.0); GLOMERULAR FILTRATION RATE > 60; GLUCOSE 122 mg/dL (70-100); POTASSIUM 4.3 mEq/L (3.5-5.2); SODIUM 127 mEq/L (134-144)
[2017-01-09] MEDS: ATORVASTATIN CALCIUM 40 MG TAB PO SCH (19:43)
[2017-01-09] MEDS: LISINOPRIL 2.5 MG TAB PO SCH (19:43)
[2017-01-09] MEDS: AMIODARONE HCL 200 MG TAB PO SCH (19:44)
[2017-01-09] MEDS: POLYETHYLENE GLYCOL 3350 17 GM PKT PO PRN (19:44)
[2017-01-10] MEDS: traMADol 50 MG TAB PO PRN ×2 (06:21→17:22)
[2017-01-10 06:32] LABS: INR 1.61 (0.83-1.16); PROTIME(PATIENT) 19.2 SEC (12.0-15.0)
[2017-01-10 06:48] LABS: POTASSIUM 4.2 mEq/L (3.5-5.2); SODIUM 129 mEq/L (134-144)
[2017-01-10 06:49] LABS: ANION GAP 2 mEq/L (8-16); CALCIUM 8.1 mg/dL (8.5-10.4); CARBON DIOXIDE 33 mEq/l (22-31); CHLORIDE 94 mEq/L (97-110); CREATININE 0.6 mg/dL (0.6-1.0); GLOMERULAR FILTRATION RATE > 60; GLUCOSE 105 mg/dL (70-100)
--- NOTE | 2017-01-10 08:46 | SOAPPROG ---
SOAP Progress Note Assessment/Plan: Assessment: POD#9 Redo median sternotomy, reduction aortoplasty, complex MV rpr w #34 Physio annuloplasty ring, TVA #36 MC3 ring, CABG x 3 (PORFIRIO-LAD, SV-OM1, SV -RCA), EVH left thigh, prophylactic AtriClip LLAA. Sx severe MR - Myxomatous valve amenable to complex repair. Antithrombotic prophylaxis with Coumadin, target INR 2-3, duration 3 mo. Secondary TR - Annular dilatation amenable to ring annuloplasty. Antithrombotic prophylaxis as per MV. CAD - Full revascularization with CABG3. Secondary prevention with baby ASA, BB as allowed by rhythm, and statin when eating well. Dilated ascending aorta - With preserved tissue integrity. Resection deferred and diameter reduced by aortoplasty. Mcc BP control preferentially w BB. Dilated cardiomyopathy with chronic combined CHF - RVSD and LVDD preop. Empirically from CPB on dobutamine gtt, AV paced. Extubated in the OR. Stable hemodynamics without tachyarrhythmias. Successfully weaned off vasoactive support. Echo 4/8 notable for moderate BiV systolic dysfx, dilated atria, and elev RVSP c/w volume overload. Active diuresis initiated. Surveillance imaging per cards. Rhythm - Early postop sinus node dysfx requiring pacing. Recovery of sinus mechanism POD#2 with pronounced 1st degree AVB/RBBB and occ PACs. Onset of PAF w CVR 4/8 and BB trial started. No backup pacing triggered and TCPWs clipped. Amiodarone added under EP direction for RVR with good effect. Currently holding SR x 48hrs. Antithrombotic prophylaxis as per MV since JOSE ligated. Acute expected blood loss anemia w thrombocytopenia - Stable. No transfusions required. No evidence active coagulopathy. VTE prophylaxis with Coumadin. Plan: Ok for discharge. Cont Coumadin 2.5 mg daily. Enrolled at [facility] [place]. Next INR 01/13 at 11:30am. Dispo - Home today. Instructions re diet, meds, activity, wound care and f/u to be reviewed in presence of . 01/10/17 08:42 Subjective: Feels well. Ready for home. Tramadol providing good analgesia. Objective: Vital Signs Temp Pulse Resp BP Pulse Ox 36.3 C 80 20 97/63 L 94 01/10/17 07:42 01/10/17 07:42 01/10/17 07:42 01/10/17 07:42 01/10/17 07:42 Laboratory Results 01/08/17 04:35 01/10/17 06:15 01/09/17 01/10/17 01/11/17 05:59 05:59 05:59 Intake Total 690 1922 Output Total 1120 1050 Balance -430 872 PT 19.2 SEC (12.0-15.0) H 01/10/17 06:15 INR 1.61 (0.83-1.16) H 01/10/17 06:15 Holding SR w 1st degree AVB. No odilia or pauses. Desats into 80s when sleepy/asleep. Na correcting with relaxed diuresis. INR on the rise Physical Exam - Physical Exam General Appearance: alert, no apparent distress Respiratory: lungs clear Cardiac/Chest: regular rate, rhythm, other (sternotomy and LLE venotomy healing well) Abdomen: non-tender, soft Skin: warm/dry Extremities: swelling (trace) ICD10 Worksheet Patient Problems: Problems Problem Status Onset Acute blood loss anemia Acute Postoperative atrial fibrillation Acute S/P coronary artery bypass graft x 3 Acute ~01/01/17 S/P mitral valve repair Acute ~01/01/17 S/P tricuspid valve repair Acute ~01/01/17 s/p aortoplasty Acute ~01/01/17 Ascending aorta dilatation Chronic CAD in [place] artery Chronic Chronic combined systolic and diastolic CHF, NYHA class 2 Chronic Secondary pulmonary hypertension Chronic Secondary tricuspid valve regurgitation Chronic Severe mitral regurgitation Chronic Hip arthritis Chronic
[2017-01-10] MEDS: AMIODARONE HCL 200 MG TAB PO SCH (09:05)
[2017-01-10] MEDS: METOPROLOL SUCCINATE XR 25 MG TAB PO SCH (09:05)
[2017-01-10] MEDS: ASPIRIN EC 81 MG TAB PO SCH (09:05)
[2017-01-10] MEDS: FERROUS SULFATE 325 MG TAB PO SCH ×2 (09:07→17:22)
[2017-01-10] MEDS: SPIRONOLACTONE 25 MG TAB PO SCH (09:56)
[2017-01-10] MEDS ORDERED: TORSEMIDE 20 MG TAB PO SCH (10:00)
--- NOTE | 2017-01-10 10:18 | SOAPPROG ---
SOAP Progress Note Assessment/Plan: Assessment: 61 y/o woman s/p redo sternotomy with MV and TV annuloplasties, CABG and JOSE ligation with preop LVEF 40%. POD #9 with PAF now in NSR. Serum NA improved. Appears euvolemic in NSR. REC: 1)no aldactone. 2)demadex 20mg PO qam 3)rest of meds without changes. 4)okay from CHF standpoint to discharge home today with f/u CHF-[facility] with ecg in 5-7 days. 5)recheck labs in four days (CBC and BMP). Thanks, will sign off. 01/10/17 10:15 Subjective: overall feels stronger than yesterday. Denies CP, palpitations, near syncope, PND or cough. Mild leg edema but improving. Objective: Vital Signs Temp Pulse Resp BP Pulse Ox 36.3 C 87 16 97/63 L 84 L 01/10/17 07:42 01/10/17 09:56 01/10/17 09:56 01/10/17 07:42 01/10/17 09:56 Laboratory Results 01/08/17 04:35 01/10/17 06:15 01/09/17 01/10/17 01/11/17 05:59 05:59 05:59 Intake Total 690 1922 Output Total 1120 1050 Balance -430 872 PT 19.2 SEC (12.0-15.0) H 01/10/17 06:15 INR 1.61 (0.83-1.16) H 01/10/17 06:15 Physical Exam - Physical Exam General Appearance: alert EENT: PERRL/EOMI Neck: non-tender Respiratory: lungs clear Cardiac/Chest: regular rate, rhythm, systolic murmur (1/6 MARTIN heard), No gallop Peripheral Pulses: 2+: carotid (R), carotid (L), femoral (R), femoral (L), dorsalis-pedis (R), dorsalis-pedis (L) Abdomen: non-tender, No guarding Skin: warm/dry Extremities: pedal edema (trace bilateral pretibial) Neuro/Psych: alert ICD10 Worksheet Patient Problems: Problems Problem Status Onset Acute blood loss anemia Acute Postoperative atrial fibrillation Acute S/P coronary artery bypass graft x 3 Acute ~01/01/17 S/P mitral valve repair Acute ~01/01/17 S/P tricuspid valve repair Acute ~01/01/17 s/p aortoplasty Acute ~01/01/17 Ascending aorta dilatation Chronic CAD in [place] artery Chronic Chronic combined systolic and diastolic CHF, NYHA class 2 Chronic Secondary pulmonary hypertension Chronic Secondary tricuspid valve regurgitation Chronic Severe mitral regurgitation Chronic Hip arthritis Chronic
[2017-01-10 11:30] VITALS: BP 98/67; PULSE 89; RESP 20; TEMP 98.1; O2SAT 93
[2017-01-10] MEDS: ACETAMINOPHEN 325 MG TAB PO PRN (12:58)
--- NOTE | 2017-01-10 15:20 | PDDCSUM ---
Discharge Summary Discharge Summary: DATE OF ADMISSION: 01/01/17 DATE OF DISCHARGE: 01/10/17 DISPOSITION: Home, self-care PRINCIPAL ADMISSION DIAGNOSES: 1. Symptomatic severe mitral valve regurgitation. 2. Secondary tricuspid valve regurgitation. 3. Incidental multivessel coronary artery disease. 4. Incidental dilatation of the ascending aorta. PRINCIPAL DISCHARGE DIAGNOSES: 1. Status post complex mitral valve repair. 2. Status post tricuspid valve annuloplasty. 3. Status post coronary artery bypass grafting x 3. 4. Status post reduction aortoplasty. 5. Status post prophylactic ligation of the left atrial appendage. 6. Acute expected blood loss anemia with thrombocytopenia. 7. Postoperative sinus node dysfunction and paroxysmal atrial fibrillation. 8. Postoperative electrolyte imbalance. HISTORY OF PRESENT ILLNESS: 61 yo female with a hx of congenital heart disease evaluated for a lingering URI and ultimately diagnosed with florid heart failure, a dilated cardiomyopathy , a 4 cm ascending aorta, biventricular systolic dysfunction, multivalvular insufficiency, PHTN and multivessel CAD. Medically optimized - with marked improvements in LVEF and PA pressures - but ongoing RVSD, severe MVP of posterior mitral leaflet, severe MR, and moderate TR. Surgical intervention recommended. Holter screening negative for SVT/AF/Aflutter and admitted for elective valvular repair, CABG and possible ascending aortic replacement. PERTINENT PAST MEDICAL HISTORY: 1. 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 Presumed ASD repair. 2. Dilated cardiomyopathy with chronic combined systolic and diastolic CHF, NYHA class 2. 3. Coronary artery disease - 2 vessel CAD by CCTA, shown by [facility] to be 40% distal left main stenosis, 70% prox LAD stenosis, 50% OM1 stenosis and 50% ostial RCA stenosis. 4. Carotid artery disease - mild calcific plaquing without hemodynamically significant stenosis by preop carotid US. 5. Essential HTN. 6. Dyslipidemia. 7. Osteoarthritis left hip - s/p NAY. MEDICATIONS ON ADMISSION: ASA 81 mg daily; Atorvastatin 40 mg daily; Lisinopril 10 mg daily; Metoprolol succinate 25 mg daily; Lasix 40 mg daily ALLERGIES: NKDA CONSULTANTS: Pulmonology/critical care (Nilesh), clinical cardiology (Sallie), EP cardiology ( Saima). PROCEDURES/IMAGIN/5 (Isa): Redo median sternotomy with exposure of the right femoral artery and vein. Complex mitral valve repair with triangular resection of P2, cleft closure of P2/P3, and annuloplasty with a 34mm Noel Physio ring. Tricuspid valve annuloplasty with a 36 mm Noel MC3 ring. Coronary artery bypass grafting x 3 (LLOYD-LAD, SV-OM1, SV-RCA). Takedown LLOYD. Endoscopic vein harvest left thigh. Reduction aortoplasty. Prophylactic ligation of the left atrial appendage. 01/03 (Adam): Transthoracic echocardiogram. ABBREVIATED HOSPITAL COURSE BY ACTIVE PROBLEM LIST: 1. Sx severe MR - Myxomatous valve amenable to complex repair. Antithrombotic prophylaxis with Coumadin, target INR 2-3, duration 3 mo. 2. Secondary TR - Annular dilatation amenable to ring annuloplasty. Antithrombotic prophylaxis as per MV. 3. CAD - Full revascularization with CABG3. Secondary prevention with baby ASA, statin and BB as tolerated. 4. Dilated ascending aorta - With preserved tissue integrity. Resection deferred and diameter reduced by aortoplasty. Detention BP control preferentially w BB. 5. Dilated cardiomyopathy with chronic combined CHF - RVSD and LVDD preop. Empirically from CPB on dobutamine gtt, AV paced. Extubated in the OR. Stable hemodynamics without tachyarrhythmias or prolonged vasoactive support. Echo on POD#2 notable for moderate BiV systolic dysfx, dilated atria, and elev RVSP c/w volume overload. Active diuresis initiated. Attendant hyponatremia and hypokalemia corrected with supportive therapies. Heart failure regimen per cards. Repeat TTE in 2-3 months or as directed by cards. 6. Rhythm - Early postop sinus node dysfx requiring pacing. Recovery of sinus mechanism POD#2 with pronounced 1st degree AVB/RBBB and occ PACs. Onset of PAF w CVR on POD#3 and BB trial started. No backup pacing triggered and TCPWs clipped. Amiodarone added under EP direction for eventual RVR. SR restored during amio load and maintained on a reduced oral dose without bradycardia or pauses Antithrombotic prophylaxis as per MV since JOSE ligated. 7. Acute expected blood loss anemia w thrombocytopenia - Stable. No transfusions required. No evidence active coagulopathy. VTE prophylaxis with Coumadin. Iron supplementation x 2 weeks. DISCHARGE CLINICAL INFORMATION: Sternum grossly stable. Sternotomy and LLE CDI, sutured, +Dermabond. HR 60s-80s, 1st degree AVB, RBBB. SBP 90s-110s. SpO2 84% RA with ambulation, 81 % RA sleeping, 93% RA awake, correcting to >91% on 1 Lpm O2. Wt 6.2 kg above admission at 76.7 kilos. WBC 7.55, Hgb 8.3, HCT 25, Plt 107, Na 129, K 4.2, Cr 0.6 Coumadin flow sheet: Surgical prophylaxis. Target INR 2-3. Duration 3 months ( if rhythm stable). Date INR mg 01/02 1.39 2.5 01/03 1.72 1.0 01/04 1.65 2.0 01/05 1.49 3.0 01/06 1.72 2.0 01/07 1.76 2.5 01/08 n/d 2.5 01/09 1.57 4 01/10 1.61 2.5 DISCHARGE MEDICATIONS: As on admission with the following adjustments: 1. Hold Lisinopril 10 mg tablet. 2. Hold Lasix. 3. Hold ASA for INR > 3. NEW prescriptions: 1. Lisinopril 2.5 mg nightly. 2. Demadex 20 mg daily. 3. Coumadin 2.5 mg daily or as directed by INR/anticoagulation clinic. 4. Ferrous sulfate 325 mg BID x 2 weeks. 5. Amiodarone 100 mg daily x 1 month. 6. Ultram 50 mg, 1/2 - 1 tab q 6-8hrs prn incisional discomfort. 7. Oxygen 1 Lpm continuously before activity and sleep, or as directed by SpO2. FOLLOW UP APPOINTMENTS: 1. CV surgery: with Dr Moss at [facility] on 01/14 at 9:30 am. 2. Cardiology: with Dr Rizo at [facility] on 01/15 at 1:00 pm. 3. Anticoagulation clinic: INR at [facility] in [place] on 01/13 at 11:30 am. FOLLOW UP TESTING: CXR, CBC, BMP, INR prior to surgical appointment.
[2017-01-10] MEDS ORDERED: WARFARIN SODIUM 2.5 MG TAB PO SCH (16:00)
== END 2017-01-10 18:06 | disposition home or self-care (01) | DRG 219 ==
LOC: F2N 05:53 → F2W 01-04 16:09
PROVIDERS: ADMIT Thoracic Surgery (Cardiothoracic Vascular Surgery); ATTEND Thoracic Surgery (Cardiothoracic Vascular Surgery)
PROC: 02QX0ZZ Repair Thoracic Aorta, Ascending/Arch, Open Approach (ICD-10-PCS; principal; 2017-01-01 07:15)
PROC: 02100Z9 Bypass Coronary Artery, One Artery from Left Internal Mammary, Open Approach (ICD-10-PCS; principal; 2017-01-01 07:15)
PROC: 06BQ3ZZ Excision of Left Saphenous Vein, Percutaneous Approach (ICD-10-PCS; principal; 2017-01-01 07:15)
PROC: 02BG0ZZ Excision of Mitral Valve, Open Approach (ICD-10-PCS; principal; 2017-01-01 07:15)
PROC: 02UG0JZ Supplement Mitral Valve with Synthetic Substitute, Open Approach (ICD-10-PCS; principal; 2017-01-01 07:15)
PROC: 02UJ0JZ Supplement Tricuspid Valve with Synthetic Substitute, Open Approach (ICD-10-PCS; principal; 2017-01-01 07:15)
PROC: 021109W Bypass Coronary Artery, Two Arteries from Aorta with Autologous Venous Tissue, Open Approach (ICD-10-PCS; principal; 2017-01-01 07:15)
PROC: 02BJ0ZZ Excision of Tricuspid Valve, Open Approach (ICD-10-PCS; principal; 2017-01-01 07:15)
PROC: 5A1221Z Performance of Cardiac Output, Continuous (ICD-10-PCS; principal; 2017-01-01 07:15)
PROC: 02L70CK Occlusion of Left Atrial Appendage with Extraluminal Device, Open Approach (ICD-10-PCS; principal; 2017-01-01 07:15)
DX: I34.0 Nonrheumatic mitral (valve) insufficiency (principal); I36.1 Nonrheumatic tricuspid (valve) insufficiency; I25.10 Atherosclerotic heart disease of native coronary artery without angina pectoris; I50.33 Acute on chronic diastolic (congestive) heart failure; D62 Acute posthemorrhagic anemia; D69.6 Thrombocytopenia, unspecified; I77.811 Abdominal aortic ectasia; I48.0 Paroxysmal atrial fibrillation; I42.0 Dilated cardiomyopathy; N17.9 Acute kidney failure, unspecified; E87.5 Hyperkalemia; E87.1 Hypo-osmolality and hyponatremia; I44.0 Atrioventricular block, first degree; I27.2 Other secondary pulmonary hypertension; Z96.642 Presence of left artificial hip joint
CPT/HCPCS: 82947-QW; 97116-GP; 97162-GP; 97166-GO; 97530-GO; 97535-GO; C1768; J0153; J0282; J0690; J1170; J1250; J1265; J1644; J1815; J1885; J2001; J2150; J2250; J2260; J2370; J2405; J2440; J2704; J2720; J2765; J2930; J3010; J7060; P9041

== ENCOUNTER → 2017-01-14 | Outpatient (CLI) | payer OTHER | LOC: FIMAGING 08:51 | PROVIDERS: ATTEND Thoracic Surgery (Cardiothoracic Vascular Surgery) | DX: Z09 Encounter for follow-up examination after completed treatment for conditions other than malignant neoplasm (principal); I07.1 Rheumatic tricuspid insufficiency; I34.0 Nonrheumatic mitral (valve) insufficiency; I77.810 Thoracic aortic ectasia ==

== ENCOUNTER 2017-04-20 11:12 | Emergency (ER) | payer OTHER ==
[2017-04-20 11:26] VITALS: BP 139/82; PULSE 74; RESP 18; TEMP 98.2; O2SAT 93
[2017-04-20 11:33] LABS: COLOR YELLOW; LEUKOCYTE ESTERASE,URINE 1+ (NEGATIVE); NITRITE,URINE NEGATIVE (NEGATIVE)
[2017-04-20 11:43] LABS: AMORPHOUS 1+ /hpf (NONE-1+); BACTERIA 2+ /hpf (NONE SEEN); WBC,URINE 15-25 /hpf (0-3)
--- NOTE | 2017-04-20 12:01 | EDPHY ---
H & P Stated Complaint: urinary urgency started yesterday, possible uti Time Seen by Provider: 04/20/17 11:28 HPI/ROS: Chief Complaint: Urinary urgency and frequency HPI: 62-year-old woman has had 2 days of urinary urgency and frequency. She has had some burning with urination some cramping right after she urinates. No fevers or chills. No back pain. No nausea or vomiting. ROS: 10 point Review of Systems is negative except as noted in the HPI. PMH: Coronary artery disease, CABG, her daughter placement Medications include Coumadin Allergies: No known drug allergies Social History: No smoking, occasional alcohol, no recreational drug use Family History: non-contributory Physical Exam: Gen: Awake, Alert, No Distress HEENT: Nose: no rhinorrhea Eyes: PERRLA, EOMI Mouth: Moist mucosa Neck: Supple, no JVD Chest: nontender, lungs clear to auscultation Heart: S1, S2 normal, no murmur Abd: Soft, non-tender, no guarding Back: no CVA tenderness, no midline tenderness Ext: no edema, non-tender Skin: no rash Neuro: CN II-XII intact, Sensation grossly intact, Strength 5/5 in bilateral upper and lower extremities - Medical/Surgical History Hx Asthma: No Hx Chronic Respiratory Disease: No Hx Diabetes: No Hx Cardiac Disease: Yes Hx Renal Disease: No Hx Cirrhosis: No Hx Alcoholism: No Hx HIV/AIDS: No Hx Splenectomy or Spleen Trauma: No Other PMH: Hip replacement in November of 2015, open heart surgery december 2016 - Social History Smoking Status: Never smoked Constitutional: Initial Vital Signs Temperature (C) 36.8 C 04/20/17 11:22 Heart Rate 74 04/20/17 11:22 Respiratory Rate 18 04/20/17 11:22 Blood Pressure 139/82 H 04/20/17 11:22 O2 Sat (%) 93 04/20/17 11:22 O2 Delivery Mode Room Air Allergies/Adverse Reactions: No Known Allergies Allergy (Verified 04/20/17 11:22) Home Medications: Medication Instructions Recorded Aspirin EC [Aspirin EC 81 mg (*)] 81 mg PO DAILY 01/01/17 Atorvastatin Calcium 40 mg PO HS 01/01/17 Metoprolol Succinate 25 mg PO DAILY 01/01/17 Acetaminophen [Tylenol 325mg (*)] 325 - 650 mg PO Q4HRS PRN #0 tab 01/10/17 Amiodarone HCl [Pacerone (*)] 100 mg PO DAILY #15 tab 01/10/17 Ferrous Sulfate [Ferrous Sulf 325 325 mg PO BIDMEAL #30 tab 01/10/17 MG (*)] Lisinopril [Zestril 2.5 mg (*)] 2.5 mg PO HS #30 tab 01/10/17 Torsemide [Demadex] 20 mg PO DAILY AT 10AM #30 tab 01/10/17 Warfarin Sodium [Coumadin 2.5MG 2.5 mg PO DAILY AT 4PM #60 tab 01/10/17 (*)] traMADol [Ultram 50 mg (*)] 50 mg PO Q6HRS PRN #40 tab 01/10/17 Nitrofurantoin Monohyd/M-Cryst 100 mg PO BID #10 capsule 04/20/17 [Macrobid 100 mg Capsule] Medical Decision Making - Data Points Laboratory Results: 04/20/17 04/20/17 12:05 11:20 Urine Color YELLOW YELLOW Urine Appearance CLEAR HAZY Urine pH 5.5 5.0 (5.0-7.5) (5.0-7.5) Ur Specific [place] 1.010 1.010 (1.002-1.030) (1.002-1.030) Urine Protein NEGATIVE NEGATIVE (NEGATIVE) (NEGATIVE) Urine Ketones NEGATIVE NEGATIVE (NEGATIVE) (NEGATIVE) Urine Blood TRACE H TRACE H (NEGATIVE) (NEGATIVE) Urine Nitrate NEGATIVE NEGATIVE (NEGATIVE) (NEGATIVE) Urine Bilirubin NEGATIVE NEGATIVE (NEGATIVE) (NEGATIVE) Urine Urobilinogen 0.2 EU EU 0.2 EU EU (0.2-1.0) (0.2-1.0) Ur Leukocyte Esterase 1+ H 1+ H (NEGATIVE) (NEGATIVE) Urine RBC 3-5 /hpf H /hpf 5-10 /hpf H /hpf (0-3) (0-3) Urine WBC 10-15 /hpf H /hpf 15-25 /hpf H /hpf (0-3) (0-3) Ur Epithelial Cells TRACE /lpf /lpf 3+ /lpf H /lpf (NONE-1+) (NONE-1+) Amorphous Sediment 1+ /hpf /hpf (NONE-1+) Urine Bacteria TRACE /hpf H /hpf 2+ /hpf H /hpf (NONE SEEN) (NONE SEEN) Urine Yeast OCCASIONAL /hpf H /hpf (NONE SEEN) Urine Glucose NEGATIVE NEGATIVE (NEGATIVE) (NEGATIVE) Departure - Departure Disposition: Home, Routine, Self-Care Clinical Impression: Urinary tract infection Condition: Good Instructions: Urinary Tract Infection in Women (ED) Additional Instructions: Follow up with primary care physician in 1-2 days for a check of the INR. Return emergency depart for increasing pain, nausea, vomiting, fevers, chills, or any other concerns. Referrals: Ramsey Richards MD [Primary Care Provider] - As per Instructions Prescriptions: Nitrofurantoin Monohyd/M-Cryst [Macrobid 100 mg Capsule] 100 mg PO BID #10 capsule
[2017-04-20 12:15] LABS: COLOR YELLOW; LEUKOCYTE ESTERASE,URINE 1+ (NEGATIVE); NITRITE,URINE NEGATIVE (NEGATIVE); PH,URINE 5.5 (5.0-7.5)
[2017-04-20 12:29] LABS: BACTERIA TRACE /hpf (NONE SEEN); YEAST OCCASIONAL /hpf (NONE SEEN)
== END 2017-04-20 12:58 | disposition home or self-care (01) ==
LOC: CED 11:12
DX: N39.0 Urinary tract infection, site not specified (principal); B96.89 Other specified bacterial agents as the cause of diseases classified elsewhere; I25.810 Atherosclerosis of coronary artery bypass graft(s) without angina pectoris; Z79.01 Long term (current) use of anticoagulants; Z79.82 Long term (current) use of aspirin
CPT/HCPCS: 81003-PO; 81015-PO

== ENCOUNTER 2018-08-26 16:57 | Observation (INO) | payer OTHER ==
--- NOTE | 2018-08-26 17:13 | EDPHY ---
H & P Time Seen by Provider: 08/26/18 17:04 HPI/ROS: CHIEF COMPLAINT: Abnormal behavior HISTORY OF PRESENT ILLNESS: Patient arrives by private vehicle with her daughter. 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 She suddenly started acting abnormally. Just prior to this daughter went back in to work get something and came out to the car when the patient was just staring at her through the locked window and not responding appropriately. Speech was abnormal, response was slow. On arrival the patient says that she does not have any complaints. She specifically denies headache, being off balance, weakness or numbness, or any symptoms at all. REVIEW OF SYSTEMS: Eye: no change in vision ENT: no sore throat Cardiac: no chest pain or syncope Pulmonary: no cough or SOB Abdomen: no vomiting, diarrhea, abdominal pain Musculoskeletal: no back pain or neck pain Skin: no rash Neuro: no headache Constitutional: no fever : no urinary symptoms A comprehensive 10 point review of systems is otherwise negative aside from elements mentioned in the history of present illness. PAST MEDICAL HISTORY: Includes hip replacement, complex open-heart surgery in December of 2016 for mitral valve and tricuspid valve repair as well as bypass. Social history: Here with daughter, denies drugs or alcohol. General Appearance: Alert and conversant, cooperative. Eyes: No scleral icterus. Pupils equal reactive extraocular motion intact. ENT, Mouth: Normal mucous membranes. Respiratory: Normal respiratory effort, breath sounds equal, lungs are clear to auscultation. Cardiovascular: Regular rate and rhythm. Gastrointestinal: Abdomen is soft and non tender. Neurological: Patient is ambulatory without ataxia. She is alert, but when asked her age she is unable to answer. She knows that she was born in [place] and then in [place]. 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 Questionable facial droop. Skin: Warm and dry, no rashes. Musculoskeletal: No peripheral edema. Psychiatric: Not agitated. Emergency Department course/MDM: 1710: stroke alert called, [address] per Isuani. 174: Dr. Terrence Wright; evaluated patient, recommended no TPA, INR 1.5, angio ordered. 180: no LVO per Isuani on CTA. 1810: Results discussed, plan for admission for further evaluation. Differential including possible TIA, partial seizure, medication reaction all considered. Smoking Status: Never smoked Constitutional: Initial Vital Signs Temperature (C) 36.7 C 08/26/18 17:00 Heart Rate 76 08/26/18 17:00 Respiratory Rate 16 08/26/18 17:00 Blood Pressure 126/84 H 08/26/18 17:00 O2 Sat (%) 94 08/26/18 17:00 O2 Delivery Mode Room Air Allergies/Adverse Reactions: No Known Allergies Allergy (Verified 04/20/17 11:22) Home Medications: Medication Instructions Recorded Aspirin EC [Aspirin EC 81 mg (*)] 81 mg PO DAILY 01/01/17 Atorvastatin Calcium 40 mg PO HS 01/01/17 Lisinopril [Zestril 2.5 mg (*)] 2.5 mg PO HS #30 tab 01/10/17 Torsemide [Demadex] 20 mg PO DAILY AT 10AM #30 tab 01/10/17 Levothyroxine [Synthroid 50 mcg 50 mcg PO DAILY06 08/26/18 (*)] Losartan Potassium [Cozaar 25 mg 25 mg PO DAILY 08/26/18 (*)] Metoprolol Succinate [Toprol Xl] 150 mg PO DAILY 08/26/18 Potassium Cl [Klor-Con 20 meq (*)] 20 meq PO DAILY 08/26/18 Warfarin Sodium [Coumadin 5MG (*)] 5 mg PO SUMOWETHFRSA@16 08/26/18 Warfarin Sodium [Coumadin 5MG (*)] 7.5 mg PO TU@16 08/26/18 Medical Decision Making - Diagnostics Imaging Results: Imaging Impressions Head CT 08/26/18 17:10 Impression: 1. Mild atrophy. 2. No acute hemorrhage, hydrocephalus, or mass effect. 3. Cerebrovascular atherosclerosis. 4. No definite acute infarct. 5. Severe sinusitis. 6. Consider MRI of the brain, if there is continued clinical concern. Findings and recommendations discussed with Emergency Department physician, MARTA YUN at 17:25 hour, 08/26/2018. Final report concurs with initial preliminary interpretation. Head CTA 08/26/18 17:40 Impression: 1. Mild atherosclerotic disease bilateral carotid bulbs resulting in mild, approximately 20% diameter stenosis of bilateral ICA. 2. No evidence of carotid or vertebral dissection or complete occlusion. 3. Cervical spondylosis, worse at C5-C6, resulting in mild to moderate central canal stenosis and neural foraminal stenosis, with partial congenital fusion at C6-C7. Measurement of carotid stenosis is based on the residual internal carotid diameter with [place] Symptomatic Carotid Endarterectomy Trial (NASCET) based stenosis levels. CT Angiogram of the Brain Clinical Indications: Speech difficulty/stroke alert, previous cardiac surgery. Technique: CT angiogram of the brain and neck was performed with the uneventful intravenous administration of 85 mL Isovue-370 contrast. Multiplanar reconstructions including 3D reconstructions performed and evaluated on Vitrea workstation in order to better evaluate the [place] vessels. Images were manipulated by the radiologist at the computer workstation. Dose reduction techniques were utilized. Findings: Major vessels of the [place] are adequately displayed, demonstrating no evidence of aneurysm, vascular malformation, flow-limiting stenosis, or occlusion. Bilateral cavernous internal carotid arteries and vertebrobasilar system demonstrates no evidence of flow-limiting stenosis, aneurysm, occlusion, or dissection. Superior sagittal sinus, transverse sinuses , and major veins demonstrate no evidence of intraluminal thrombi. Severe bilateral pansinusitis noted, with fluid levels and mucosal thickening. Impression: 1. Negative CT angiogram of the brain. 2. Severe sinusitis. Findings and recommendations discussed with Emergency Department physician, Marta Yun M.D., at 1800 hours, on August 26, 2018. Final report concurs with initial preliminary interpretation. E:GI/amm Neck CTA 08/26/18 17:40 Impression: 1. Mild atherosclerotic disease bilateral carotid bulbs resulting in mild, approximately 20% diameter stenosis of bilateral ICA. 2. No evidence of carotid or vertebral dissection or complete occlusion. 3. Cervical spondylosis, worse at C5-C6, resulting in mild to moderate central canal stenosis and neural foraminal stenosis, with partial congenital fusion at C6-C7. Measurement of carotid stenosis is based on the residual internal carotid diameter with [place] Symptomatic Carotid Endarterectomy Trial (NASCET) based stenosis levels. CT Angiogram of the Brain Clinical Indications: Speech difficulty/stroke alert, previous cardiac surgery. Technique: CT angiogram of the brain and neck was performed with the uneventful intravenous administration of 85 mL Isovue-370 contrast. Multiplanar reconstructions including 3D reconstructions performed and evaluated on Vitrea workstation in order to better evaluate the [place] vessels. Images were manipulated by the radiologist at the computer workstation. Dose reduction techniques were utilized. Findings: Major vessels of the [place] are adequately displayed, demonstrating no evidence of aneurysm, vascular malformation, flow-limiting stenosis, or occlusion. Bilateral cavernous internal carotid arteries and vertebrobasilar system demonstrates no evidence of flow-limiting stenosis, aneurysm, occlusion, or dissection. Superior sagittal sinus, transverse sinuses , and major veins demonstrate no evidence of intraluminal thrombi. Severe bilateral pansinusitis noted, with fluid levels and mucosal thickening. Impression: 1. Negative CT angiogram of the brain. 2. Severe sinusitis. Findings and recommendations discussed with Emergency Department physician, Marta Yun M.D., at 1800 hours, on August 26, 2018. Final report concurs with initial preliminary interpretation. E:GI/amm Imaging: Discussed imaging studies w/ call person Radiologist Consult/Admit Bed Type: [place] [id number] - Data Points Laboratory Results: Laboratory Results 08/26/18 15:15 08/26/18 15:15 08/26/18 08/26/18 08/26/18 17:19 15:15 15:15 WBC RBC Hgb POC Hgb 15.0 gm/dL gm/dL (12.6-16.3) Hct POC Hct 44 % % (38-47) MCV MCH MCHC RDW Plt Count MPV Neut % (Auto) Lymph % (Auto) Dixie % (Auto) Eos % (Auto) Baso % (Auto) Nucleat RBC Rel Count Absolute Neuts (auto) Absolute Lymphs (auto) Absolute Monos (auto) Absolute Eos (auto) Absolute Basos (auto) Absolute Nucleated RBC Immature Gran % Immature Gran # PT 18.3 SEC H SEC (12.0-15.0) INR 1.50 H (0.83-1.16) POC Sodium 141 mEq/L mEq/L (135-145) Sodium 139 mEq/L mEq/L (135-145) POC Potassium 3.5 mEq/L mEq/L (3.3-5.0) Potassium 3.7 mEq/L mEq/L (3.3-5.0) POC Chloride 101 mEq/L mEq/L (97-110) Chloride 100 mEq/L mEq/L (97-110) Carbon Dioxide 30 mEq/l mEq/l (22-31) Anion Gap 9 mEq/L mEq/L (6-14) POC BUN 18 mg/dL mg/dL (7-23) BUN 18 mg/dL mg/dL (7-23) Creatinine 0.8 mg/dL mg/dL (0.6-1.0) POC Creatinine 0.8 mg/dL mg/dL (0.6-1.0) Estimated GFR > 60 Glucose 98 mg/dL mg/dL (70-100) POC Glucose 97 mg/dL mg/dL (70-100) Calcium 9.2 mg/dL mg/dL (8.5-10.4) 08/26/18 15:15 WBC 7.97 10^3/uL 10^3/uL (3.80-9.50) RBC 4.56 10^6/uL 10^6/uL (4.18-5.33) Hgb 14.0 g/dL g/dL (12.6-16.3) POC Hgb Hct 42.3 % % (38.0-47.0) POC Hct MCV 92.8 fL fL (81.5-99.8) MCH 30.7 pg pg (27.9-34.1) MCHC 33.1 g/dL g/dL (32.4-36.7) RDW 13.3 % % (11.5-15.2) Plt Count 206 10^3/uL 10^3/uL (150-400) MPV 9.5 fL fL (8.7-11.7) Neut % (Auto) 58.5 % % (39.3-74.2) Lymph % (Auto) 30.2 % % (15.0-45.0) Dixie % (Auto) 8.8 % % (4.5-13.0) Eos % (Auto) 1.6 % % (0.6-7.6) Baso % (Auto) 0.6 % % (0.3-1.7) Nucleat RBC Rel Count 0.0 % % (0.0-0.2) Absolute Neuts (auto) 4.66 10^3/uL 10^3/uL (1.70-6.50) Absolute Lymphs (auto) 2.41 10^3/uL 10^3/uL (1.00-3.00) Absolute Monos (auto) 0.70 10^3/uL 10^3/uL (0.30-0.80) Absolute Eos (auto) 0.13 10^3/uL 10^3/uL (0.03-0.40) Absolute Basos (auto) 0.05 10^3/uL 10^3/uL (0.02-0.10) Absolute Nucleated RBC 0.00 10^3/uL 10^3/uL (0-0.01) Immature Gran % 0.3 % % (0.0-1.1) Immature Gran # 0.02 10^3/uL 10^3/uL (0.00-0.10) PT INR POC Sodium Sodium POC Potassium Potassium POC Chloride Chloride Carbon Dioxide Anion Gap POC BUN BUN Creatinine POC Creatinine Estimated GFR Glucose POC Glucose Calcium Point of Care Test Results: Chemistry 08/26/18 17:19 POC Sodium 141 mEq/L mEq/L (135-145) POC Potassium 3.5 mEq/L mEq/L (3.3-5.0) POC Chloride 101 mEq/L mEq/L (97-110) POC BUN 18 mg/dL mg/dL (7-23) POC Creatinine 0.8 mg/dL mg/dL (0.6-1.0) POC Glucose 97 mg/dL mg/dL (70-100) ISTAT H&H 08/26/18 17:19 POC Hgb 15.0 gm/dL gm/dL (12.6-16.3) POC Hct 44 % % (38-47) Departure - Departure Disposition: [facility] Inpatient Acute Clinical Impression: Altered mental status, unspecified Qualifiers: Altered mental status type: transient alteration of awareness Qualified Code(s) : R40.4 - Transient alteration of awareness Condition: Good
[2018-08-26 17:28] LABS: PLATELET COUNT 206 10^3/uL (150-400)
[2018-08-26 17:37] LABS: INR 1.5 (0.83-1.16); PROTIME(PATIENT) 18.3 SEC (12.0-15.0)
[2018-08-26] MEDS ORDERED: IOPAMIDOL (ISOVUE 370) 100 ML BTL IV ONE (17:42)
[2018-08-26] MEDS ORDERED: ONDANSETRON 4 MG/2 ML VIAL IVP PRN (20:39)
[2018-08-26] MEDS ORDERED: ACETAMINOPHEN 325 MG TAB PO PRN (20:39)
[2018-08-26] MEDS ORDERED: HYDROCODONE/APAP 5/325 TAB PO PRN (20:39)
[2018-08-26] MEDS ORDERED: ONDANSETRON DISINTEGRATING 4 MG TAB PO PRN (20:39)
[2018-08-26] MEDS ORDERED: oxyCODONE IR 5 MG TAB PO PRN (20:39)
--- NOTE | 2018-08-26 20:42 | PDGENHP ---
History and Physical - Chief Complaint confusion - History of Present Illness 63 yo F with PMH that includes congenital heart disease as well as VHD and CAD as an adult s/p MV and TV repair and CABG presenting with an episode of confusion today. Patient has only limited memory of the event, but notes that she was out with her daughter and when they were going back to the car, patient' s daughter noticed her standing at the door--not opening the care door or speaking and having a hard time answering questions as to why she was doing that. Ultimately patients daughter put her in the back seat and drove her to the ER. When they iniitally arrived patient was still having some difficulty answering questions appropriately and was noted to be unsteady on her feet. She notes that since then she is now feeling completely back to normal. Patient's present at bedside confirms that there has not been any lingering issues with confusiong or answering questions. She denies any chest pain, sob, fever or chills, n/v or other complaints. She has not been ill recently. History Information - Allergies/Home Medication List Allergies/Adverse Reactions: No Known Allergies Allergy (Verified 04/20/17 11:22) Home Medications: Aspirin EC [Aspirin EC 81 mg (*)] 81 mg PO DAILY 01/01/17 [Last Taken Unknown] Atorvastatin Calcium 40 mg PO HS 01/01/17 [Last Taken Unknown] Levothyroxine [Synthroid 50 mcg (*)] 50 mcg PO DAILY06 08/26/18 [Last Taken Unknown] Losartan Potassium [Cozaar 25 mg (*)] 25 mg PO DAILY 08/26/18 [Last Taken Unknown] Metoprolol Succinate [Toprol Xl] 150 mg PO DAILY 08/26/18 [Last Taken Unknown] Potassium Cl [Klor-Con 20 meq (*)] 20 meq PO DAILY 08/26/18 [Last Taken Unknown] Warfarin Sodium [Coumadin 5MG (*)] 5 mg PO SUMOWETHFRSA@16 08/26/18 [Last Taken Unknown] Warfarin Sodium [Coumadin 5MG (*)] 7.5 mg PO TU@16 08/26/18 [Last Taken Unknown] I have personally reviewed and updated: family history, medical history, social history, surgical history - Past Medical History atrial fibrillation, coronary artery disease, CHF (EF of 35-40% as well as diastolic), hypertension, hyperlipidemia Additional medical history: pulm htn. VHD: s/p mitral valve repair and tricuspid valve annulplasty. dilated CM. congenital heart disease. dilated ascending aorta - Surgical History Reports: coronary bypass surgery Additional surgical history: MV repair/TV annuloplasty. sternotomy and presumed ASD repair as a baby - Social History Smoking Status: Never smoked Alcohol Use: None Drug Use: None Additional social history: , daughter involved in care Review of Systems Review of Systems: ROS: 10pt was reviewed & negative except for what was stated in HPI & below Physical Exam Physical Exam: Temp Pulse Resp BP Pulse Ox 36.7 C 69 20 131/79 H 93 08/26/18 19:27 08/26/18 19:27 08/26/18 19:27 08/26/18 19:27 08/26/18 19:27 Constitutional: no apparent distress, appears nourished Eyes: PERRL, anicteric sclera Ears, Nose, Mouth, Throat: moist mucous membranes, hearing normal Cardiovascular: regular rate and rhythym, systolic murmur, No edema Respiratory: no respiratory distress, no rales or rhonchi Gastrointestinal: normoactive bowel sounds, soft, non-tender abdomen Genitourinary: no bladder tenderness Skin: warm, normal color Musculoskeletal: full muscle strength Neurologic: AAOx3 Psychiatric: interacting appropriately, not anxious, not encephalopathic Lab Data & Imaging Review 08/26/18 15:15 08/26/18 15:15 WBC 7.97 10^3/uL (3.80-9.50) 08/26/18 15:15 RBC 4.56 10^6/uL (4.18-5.33) 08/26/18 15:15 Hgb 14.0 g/dL (12.6-16.3) 08/26/18 15:15 POC Hgb 15.0 gm/dL (12.6-16.3) 08/26/18 17:19 Hct 42.3 % (38.0-47.0) 08/26/18 15:15 POC Hct 44 % (38-47) 08/26/18 17:19 MCV 92.8 fL (81.5-99.8) 08/26/18 15:15 MCH 30.7 pg (27.9-34.1) 08/26/18 15:15 MCHC 33.1 g/dL (32.4-36.7) 08/26/18 15:15 RDW 13.3 % (11.5-15.2) 08/26/18 15:15 Plt Count 206 10^3/uL (150-400) 08/26/18 15:15 MPV 9.5 fL (8.7-11.7) 08/26/18 15:15 Neut % (Auto) 58.5 % (39.3-74.2) 08/26/18 15:15 Lymph % (Auto) 30.2 % (15.0-45.0) 08/26/18 15:15 [place] % (Auto) 8.8 % (4.5-13.0) 08/26/18 15:15 Eos % (Auto) 1.6 % (0.6-7.6) 08/26/18 15:15 Baso % (Auto) 0.6 % (0.3-1.7) 08/26/18 15:15 Nucleat RBC Rel Count 0.0 % (0.0-0.2) 08/26/18 15:15 Absolute Neuts (auto) 4.66 10^3/uL (1.70-6.50) 08/26/18 15:15 Absolute Lymphs (auto) 2.41 10^3/uL (1.00-3.00) 08/26/18 15:15 Absolute Monos (auto) 0.70 10^3/uL (0.30-0.80) 08/26/18 15:15 Absolute Eos (auto) 0.13 10^3/uL (0.03-0.40) 08/26/18 15:15 Absolute Basos (auto) 0.05 10^3/uL (0.02-0.10) 08/26/18 15:15 Absolute Nucleated RBC 0.00 10^3/uL (0-0.01) 08/26/18 15:15 Immature Gran % 0.3 % (0.0-1.1) 08/26/18 15:15 Immature Gran # 0.02 10^3/uL (0.00-0.10) 08/26/18 15:15 PT 18.3 SEC (12.0-15.0) H 08/26/18 15:15 INR 1.50 (0.83-1.16) H 08/26/18 15:15 POC Sodium 141 mEq/L (135-145) 08/26/18 17:19 Sodium 139 mEq/L (135-145) 08/26/18 15:15 POC Potassium 3.5 mEq/L (3.3-5.0) 08/26/18 17:19 Potassium 3.7 mEq/L (3.3-5.0) 08/26/18 15:15 POC Chloride 101 mEq/L (97-110) 08/26/18 17:19 Chloride 100 mEq/L (97-110) 08/26/18 15:15 Carbon Dioxide 30 mEq/l (22-31) 08/26/18 15:15 Anion Gap 9 mEq/L (6-14) 08/26/18 15:15 POC BUN 18 mg/dL (7-23) 08/26/18 17:19 BUN 18 mg/dL (7-23) 08/26/18 15:15 Creatinine 0.8 mg/dL (0.6-1.0) 08/26/18 15:15 POC Creatinine 0.8 mg/dL (0.6-1.0) 08/26/18 17:19 Estimated GFR > 60 08/26/18 15:15 Glucose 98 mg/dL (70-100) 08/26/18 15:15 POC Glucose 97 mg/dL (70-100) 08/26/18 17:19 Calcium 9.2 mg/dL (8.5-10.4) 08/26/18 15:15 Visualized and Interpreted imaging results: Yes Interpretation: head cT no acute findings. head/neck CTA: no flow limiting disease Assessment & Plan Assessment: 63 yo F with PMH of VHD, CAD presenting with brief episode of confusion #TIA versus brief neuro sxs; patient with relatively brief episode of confusion characterized by standing in fron of car seemingly confused as to how to get in etc, sxs now completely resolved, initial w/u negative for acute neuro issues. Will ask neurology to evalaute in am, will monitor overnight # p a fib: for which she has bee on warfarin thought currently subtherapeutic, will monitor on tele # CAD: with hx of cabg, no chest pain but given unusual presentation possibly relateding to anginal equivalent have ordered ecg and serial trops, will monitor on tele # chronic combined CHF: with most recent EF of 35%, no current evidence of decompensation # HTN/HLD: continue op meds # observation status Patient new to my care. Old records reviewed and summarized as above. Care plan reveiwed with ER doctor. Further hx obtained fro patients present at bedside.
[2018-08-27] MEDS ORDERED: ASPIRIN EC 81 MG TAB PO SCH (09:00)
[2018-08-27] MEDS ORDERED: POTASSIUM CL 20 MEQ TAB PO SCH (09:00)
[2018-08-27] MEDS ORDERED: METOPROLOL SUCCINATE XR 100 MG TAB PO SCH (09:00)
[2018-08-27] MEDS ORDERED: LOSARTAN POTASSIUM 25 MG TAB PO SCH (09:00)
[2018-08-27] MEDS ORDERED: TORSEMIDE 20 MG TAB PO SCH (10:00)
[2018-08-27] MEDS ORDERED: LEVOTHYROXINE 50 MCG TAB PO SCH (10:15)
--- NOTE | 2018-08-27 11:33 | GCON ---
NEUROLOGY CONSULT DATE OF CONSULTATION: 08/27/2018 REFERRING PHYSICIAN: Jeremiah Sabillon MD CHIEF COMPLAINT: Transient confusion. 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 She has a significant past medical history that includes congenital heart disease, status post valve repair, and is on chronic anticoagulation with warfarin. She has had some viral illness in the last couple of weeks, increased stress, and perhaps more poor sleep. In addition, she has been having extra hours at work, including some manual lifting as part of her work at home. Yesterday, she was with her daughter when suddenly the patient appeared confused and did not know how to open the car door. There was no focal weakness or numbness. No specific aphasia, more of confused answers. She began repeating questions, according to her . Specifically, why is she being taken to the emergency department. They would answer, and then she would repeat the question again over and over. The patient is amnestic for fragments or whole segments of this duration, which lasted around 30-60 minutes, and then it spontaneously resolved without any other focal motor or sensory symptoms. She was brought to the emergency department under a stroke alert and had a full stroke alert evaluation in our ED. Her CTA of the head and neck showed no acute vascular abnormalities. Head CT showed no acute abnormalities. INR was found to be subtherapeutic at 1.5. She has been stable overnight without any recurrent symptoms. She did also relate that this feels like when she takes Ambien. She typically takes a half tablet and does not recall if she took any extra the night before. REVIEW OF SYSTEMS: Ten-point review of systems was done, only pertinent to the HPI. For past medical history, social history, family history, home medications, and allergies, see Dr. Sabillon's history and physical. PHYSICAL EXAM: VITAL SIGNS: Blood pressure is 119/65, temperature 36.8, heart rate 70s. GENERAL: The patient is awake and alert, very pleasant, in no distress. NEUROLOGIC: Higher mental functions: She has no aphasia. She names 5/5, follows commands 5/5, repeats 5/5. Cranial nerve exam is normal 2 through 7. Motor exam reveals no focal weakness. Tone is normal. Sensory exam is normal. Coordination is normal. Gait is normal. IMPRESSION/PLAN: 1. Confusion and amnesia, resolved. The underlying etiology is not clear for the patient's brief episode of confusion with amnesia yesterday. We discussed the possibility of toxic encephalopathy, if she took extra Ambien for example. However, she does not remember either way if she did this. We also discussed the possibility of atypical transient global amnesia (atypical because the brief duration). Transient ischemic attack seems less likely based on the paucity of specific focal neurologic signs or symptoms with this event, but remains on the differential diagnosis as her INR was subtherapeutic at 1.5. Finally, we discussed the possibility of focal seizure activity. She has no epilepsy risk factors and has never had a seizure prior. This makes this differential diagnosis less likely. Going forward, I recommend [address] of [address] restrictions and seizure precautions. She is agreeable. I recommend correction of her INR prior to discharge or low molecular weight heparin upon discharge to be administered until her INR is therapeutic. She will then follow up with me in a few weeks for clinical reassessment. At that time, we will likely pursue other testing, including MRI brain and extended EEG and make further recommendations based on the findings of those tests. Per my view, she can discharge from the hospital based on the hospitalist medicine plan going forward, including correction of INR. No further recommendations. We will sign off and follow up as needed. Please do not hesitate to call the neurology service if there are any questions or changes in neurologic status with this very pleasant patient. Forty-five total minutes today on the floor reviewing records, imaging, direct counseling and coordination of care. /[id number]/MODL MTDD
[2018-08-27 11:34] VITALS: BP 130/71
--- NOTE | 2018-08-27 12:20 | ASMTCMCOM ---
CM Note CM Note Notes: 08/27/2018 Case Management Note Pt admitted with altered speech and mental status. PT has evaluated and is recommending no further follow up. Met w/pt. Pt lives with her Derik [phone]. Derik plans to transport pt in the short term for any needs. Pt was independent in ADL's prior to admission. There were no case management d/c needs identified. Case Management d/c poc: home independent with follow up as directed. Case Management available if needs change. Date Signed: 08/27/2018 12:19 PM Electronically Signed By:Traci Bose RN
--- NOTE | 2018-08-27 13:04 | PDDCSUM ---
Discharge Summary Discharge Summary: Date of Admission: August 26, 2018 Date of Discharge: August 27, 2018 Discharge Diagnoses: Possible TIA Acute encephalopathy, resolved PAF CAD, s/p CABG Chronic combined CHF H/o valvular heart disease, s/p repairs HTN HLD Admission Diagnoses: TIA vs brief Neuro syptoms PAF CAD, s/p CABG Chronic combined CHF H/o valvular heart disease, s/p repairs HTN HLD Consultants: Neurology - Dr. Arnulfo Diaz. Hospital Course: The patient is a 63-year-old female who presented to the ED after an episode of confusion. She was out with her daughter and as they were going back to their car, the patient did not open the car door and was standing, unable to speak, and unable to answer questions. Initially in the ED, patient was having trouble answering questions appropriately and was noted to be unsteady on her feet. However, soon she returned to her baseline status and felt completely normal. Patient was admitted for observation. She underwent initial testing with CTA of head and neck, which was unremarkable. It was noted that her INR was subtherapeutic at 1.5 and patient admitted that she missed a dose of warfarin within the last few days. Patient may have had a cardioembolic TIA secondary to atrial fibrillation. Patient was put on full-dose Lovenox for anticoagulation. Neurology saw the patient and recommended continued outpatient workup. In case of seizures she was recommended not to drive for 90 days. Since patient was feeling well, she was discharged home the next day. She was instructed to take an extra dose of warfarin and continue taking full- dose Lovenox until her INR becomes therapeutic. Physical Exam: Gen - alert, oriented, in NAD. Neuro: normal mentation/speech. Moves all extremities equally. Ambulating. Psych: approprpiate mood/affect. Condition: Stable Discharged to: Home Pertinent tests/labs/imaging: INR-1.5 CTA neck- 1. Mild atherosclerotic disease bilateral carotid bulbs resulting in mild, approximately 20% diameter stenosis of bilateral ICA. 2. No evidence of carotid or vertebral dissection or complete occlusion. 3. Cervical spondylosis, worse at C5-C6, resulting in mild to moderate central canal stenosis and neural foraminal stenosis, with partial congenital fusion at C6-C7. Measurement of carotid stenosis is based on the residual internal carotid diameter with [place] Symptomatic Carotid Endarterectomy Trial (NASCET) based stenosis levels. CTA head- 1. Negative CT angiogram of the brain. 2. Severe sinusitis. Medications: Please see med rec form. DC Ambien. Rx Lovenox full dose to take until INR is therapeutic. Special instructions: Do not drive for 90 days or until cleared by Neurology. Instructed patient to take an extra dose of warfarin 5mg today. Follow up: Neurology- Dr. Arnulfo Diaz - in 2 weeks, for MRI brain, extended EEG , and other testing as needed. PCP - Dr. Ramsey Richards - in 1 week. [facility] - Dr. Derik Rizo - as scheduled. [facility] on Friday to adjust warfarin.
[2018-08-27] MEDS ORDERED: ENOXAPARIN 80 MG/0.8 ML SYR SC SCH (13:20)
[2018-08-27] MEDS ORDERED: WARFARIN SODIUM 5 MG TAB PO SCH (16:00)
--- NOTE | 2018-08-27 16:55 | ASDISCHSUM ---
Discharge Information Plan Status:Home with No Needs Medically Cleared to Leave:08/26/2018 Discharge Date:08/27/2018 02:10 PM CM D/C Disposition:Home, Routine, Self-Care ADT D/C Disposition:Home, Routine, Self-Care Projected Discharge Date:08/27/2018 02:10 PM Transportation at D/C: Discharge Delay Reason: Follow-Up Date:08/27/2018 02:10 PM Discharge Slot: Final Diagnosis: Placement Information Patient Contact Information Contact Name:OSCAR Relationship: Address:[address] Work Phone: City:[facility] Phone: [facility]/Zip Code:[place] [address] Email: Financial Information Financial Class:HMO and PPO Plans Primary Plan Desc:[employer] PPO POS HMO SIG ADM Primary Plan Number:[id number] Secondary Plan Desc: Secondary Plan Number: Assessment Information LACE LACE Length of stay for Answers: Less than 1 day current admission Acuity / Level of Answers: No Care: Did the patient have an inpatient admission? Comorbidities - select Answers: Congestive heart failure all that apply Coronary Artery Disease Other Notes: AFib; HTN; HLD # of Emergency department Answers: 1-2 visits in the last 6 months Score: 6 Date Signed: 08/27/2018 04:54 PM Electronically Signed By:Traci Bose RN [facility] CM Progress Note CM Note CM Note Notes: 08/27/2018 Case Management Note Pt admitted with altered speech and mental status. PT has evaluated and is recommending no further follow up. Met w/pt. Pt lives with her Derik [phone]. Derik plans to transport pt in the short term for any needs. Pt was independent in ADL's prior to admission. There were no case management d/c needs identified. Case Management d/c poc: home independent with follow up as directed. Case Management available if needs change. Date Signed: 08/27/2018 12:19 PM Electronically Signed By:Traci Bose RN Intervention Information
[2018-08-27] MEDS ORDERED: ATORVASTATIN CALCIUM 40 MG TAB PO SCH (21:00)
[2018-08-28] MEDS ORDERED: LEVOTHYROXINE 50 MCG TAB PO SCH (06:00)
[2018-09-01] MEDS ORDERED: WARFARIN SODIUM 5 MG TAB PO SCH (16:00)
== END 2018-08-27 14:10 | disposition home or self-care (01) ==
LOC: F3N 19:30
PROVIDERS: ADMIT Internal Medicine; ATTEND Internal Medicine
DX: R41.82 Altered mental status, unspecified (principal); I65.23 Occlusion and stenosis of bilateral carotid arteries; M50.922 Unspecified cervical disc disorder at C5-C6 level; M48.02 Spinal stenosis, cervical region
CPT/HCPCS: 70450; 70496; 70498; 96372; 97161; 99285; G0378; 82435-PO; 82565-PO; 82947-PO; 84132-PO; 84295-PO; 84520-PO; 85014-PO; J1650; Q9967

== ENCOUNTER → 2018-10-18 | Outpatient (CLI) | payer OTHER | LOC: FIMAGING 09:09 | PROVIDERS: ATTEND Psychiatry & Neurology Neurology | DX: G45.4 Transient global amnesia (principal) ==

== ENCOUNTER 2019-03-13 14:15 | Emergency (ER) | payer OTHER | END 2019-03-13 16:15 | disposition home or self-care (01) | LOC: CED 14:15 ==